=== PATIENT | male | born 1945 | race Caucasian/White ===

== ENCOUNTER 2017-11-16 12:43 | Emergency (ER) | payer MEDICARE ==
[~2017-11-16] VITALS: Ht 182.9 cm; Wt 92.1 kg
[~2017-11-16 12:43] MED LIST: DIOVAN PO; HUMALOG SQ; LANTUS SQ; LORTAB 10-5001 EACH PO
== END 2017-11-16 13:05 | disposition home or self-care (01) ==
LOC: FSED 12:43
DX: H11.31 Conjunctival hemorrhage, right eye (principal)
CPT/HCPCS: 85610; 99284

== ENCOUNTER 2018-08-05 02:51 | Emergency (ER) | payer MEDICARE ==
[~2018-08-05] VITALS: Ht 182.9 cm; Wt 88.5 kg
--- OUTSIDE RECORDS SUMMARY | 2018-08-05 02:56 | XMS REPORT ---
Author Author [facility] Address Unknown Phone Unavailable Care Team Providers Care Engineering And Development Director Name Role Phone MELINDA SANFORD Unavailable Unavailable AKI BRYANT Unavailable Unavailable MECHE BALDERAS Unavailable Unavailable BRIANA, SHANI OLIVEIRA Unavailable Unavailable Payers Payer Name Policy Type Policy Number Effective Date Expiration Date Problems This patient has no known problems. Allergies, Adverse Reactions, Alerts Allergy Name Allergy Type Status Severity Reaction(s) Onset Date Inactive Date Treating Clinician Comments sulfamethoxazole DA Active SV 2018-02-08 00:00:00 trimethoprim DA Active SV 2018-02-08 00:00:00 clarithromycin DA Active MO 2018-02-08 00:00:00 sulfamethoxazole DA Active SV 2015-05-19 00:00:00 trimethoprim DA Active SV 2015-05-19 00:00:00 clarithromycin DA Active MO 2015-05-19 00:00:00 Medications This patient has no known medications. Results Test Description Test Time Test Comments Text Results Atomic Results Result Comments POCT-GLUCOSE METER 2018-02-24 08:27:00 POC-GLUCOSE METER (BEAKER) (test wwjl=3705) 328 mg/dL 70-110 Will Repeat Test/TESTED AT [address] [address] BASIC METABOLIC [id number] 05:27:00* Test Item Value Reference Range Comments SODIUM (BEAKER) (test ujnc=938) 138 meq/L 136-145 POTASSIUM (BEAKER) (test eaxl=837) 4.0 meq/L 3.5-5.1 CHLORIDE (BEAKER) (test kmdo=399) 98 meq/L 98-107 CO2 (BEAKER) (test kcmb=767) 28 meq/L 22-29 BLOOD UREA NITROGEN (BEAKER) (test ycko=104) 49 mg/dL 7-21 CREATININE (BEAKER) (test bqun=372) 5.00 mg/dL 0.57-1.25 GLUCOSE RANDOM (BEAKER) (test wbux=511) 283 mg/dL 70-105 CALCIUM (BEAKER) (test mlor=312) 8.7 mg/dL 8.4-10.2 EGFR (BEAKER) (test itxb=4370) 12 mL/min/1.73 sq m ESTIMATED GFR IS NOT ACCURATE CREATININE CLEARANCE IN PREDICTING GLOMERULAR FILTRATION RATE. ESTIMATED GFR IS NOT APPLICABLE FOR DIALYSIS PATIENTS. POCT-GLUCOSE [id number] 21:01:00* Test Item Value Reference Range Comments POC-GLUCOSE METER (BEAKER) (test thza=0897) 278 mg/dL 70-110 TESTED AT [place] [id number] POCT-GLUCOSE [id number] 17:31:00* Test Item Value Reference Range Comments POC-GLUCOSE METER (BEAKER) (test cemk=2093) 127 mg/dL 70-110 TESTED AT [address] [address] POCT-GLUCOSE [id number] 13:32:00* Test Item Value Reference Range Comments POC-GLUCOSE METER (BEAKER) (test mzrl=9705) 303 mg/dL 70-110 TESTED AT [address] [address] POCT-GLUCOSE [id number] 09:11:00* Test Item Value Reference Range Comments POC-GLUCOSE METER (BEAKER) (test yoak=5977) 234 mg/dL 70-110 TESTED AT [address] [address] BASIC METABOLIC [id number] 05:59:00* Test Item Value Reference Range Comments SODIUM (BEAKER) (test dqqp=067) 140 meq/L 136-145 POTASSIUM (BEAKER) (test bndq=667) 3.9 meq/L 3.5-5.1 CHLORIDE (BEAKER) (test hzyf=971) 99 meq/L 98-107 CO2 (BEAKER) (test lzsk=260) 29 meq/L 22-29 BLOOD UREA NITROGEN (BEAKER) (test omod=277) 48 mg/dL 7-21 CREATININE (BEAKER) (test tiqv=177) 4.96 mg/dL 0.57-1.25 GLUCOSE RANDOM (BEAKER) (test fzka=526) 211 mg/dL 70-105 CALCIUM (BEAKER) (test nqsb=917) 8.7 mg/dL 8.4-10.2 EGFR (BEAKER) (test tloi=0369) 12 mL/min/1.73 sq m ESTIMATED GFR IS NOT ACCURATE CREATININE CLEARANCE IN PREDICTING GLOMERULAR FILTRATION RATE. ESTIMATED GFR IS NOT APPLICABLE FOR DIALYSIS PATIENTS. POCT-GLUCOSE [id number] 19:27:00* Test Item Value Reference Range Comments POC-GLUCOSE METER (BEAKER) (test ibgn=2975) 249 mg/dL 70-110 TESTED AT [place] [id number] POCT-GLUCOSE [id number] 18:01:00* Test Item Value Reference Range Comments POC-GLUCOSE METER (BEAKER) (test kchd=5830) 265 mg/dL 70-110 TESTED AT [address] [address] POCT-GLUCOSE [id number] 11:59:00* Test Item Value Reference Range Comments POC-GLUCOSE METER (BEAKER) (test fcwb=9997) 195 mg/dL 70-110 TESTED AT [address] [address] POCT-GLUCOSE [id number] 08:33:00* Test Item Value Reference Range Comments POC-GLUCOSE METER (BEAKER) (test miht=6952) 100 mg/dL 70-110 TESTED AT [address] [address] BASIC METABOLIC [id number] 06:29:00* Test Item Value Reference Range Comments SODIUM (BEAKER) (test celn=854) 138 meq/L 136-145 POTASSIUM (BEAKER) (test vllb=982) 3.8 meq/L 3.5-5.1 CHLORIDE (BEAKER) (test nzaf=177) 101 meq/L 98-107 CO2 (BEAKER) (test tomx=603) 28 meq/L 22-29 BLOOD UREA NITROGEN (BEAKER) (test gbew=314) 41 mg/dL 7-21 CREATININE (BEAKER) (test wxpa=054) 4.89 mg/dL 0.57-1.25 GLUCOSE RANDOM (BEAKER) (test mvdv=544) 107 mg/dL 70-105 CALCIUM (BEAKER) (test xcru=354) 8.4 mg/dL 8.4-10.2 EGFR (BEAKER) (test pxfw=1306) 12 mL/min/1.73 sq m ESTIMATED GFR IS NOT ACCURATE CREATININE CLEARANCE IN PREDICTING GLOMERULAR FILTRATION RATE. ESTIMATED GFR IS NOT APPLICABLE FOR DIALYSIS PATIENTS. IRON, TIBC, % SAT. (WITHOUT FERRITIN)2018-02-22 06:22:00* Test Item Value Reference Range Comments IRON (BEAKER) (test rduh=541) 34 ug/dL 40-160 TOTAL IRON BINDING CAPACITY (BEAKER) (test lzzf=651) 173 ug/dL 250-450 IRON % SATURATION (2) (BEAKER) (test gixr=8096) 20 % 20-55 CBC (HEMOGRAM ONLY)2018-02-22 05:40:00* Test Item Value Reference Range Comments WHITE BLOOD CELL COUNT (BEAKER) (test qifi=652) 6.9 K/ L 3.5-10.5 RED BLOOD CELL COUNT (BEAKER) (test dhhs=826) 2.76 M/ L 4.63-6.08 HEMOGLOBIN (BEAKER) (test rqfm=747) 8.0 GM/DL 13.7-17.5 HEMATOCRIT (BEAKER) (test opso=348) 25.6 % 40.1-51.0 MEAN CORPUSCULAR VOLUME (BEAKER) (test qkic=971) 92.8 fL 79.0-92.2 MEAN CORPUSCULAR HEMOGLOBIN (BEAKER) (test novh=646) 29.0 pg 25.7-32.2 MEAN CORPUSCULAR HEMOGLOBIN CONC (BEAKER) (test tdwp=767) 31.3 GM/DL 32.3-36.5 RED CELL DISTRIBUTION WIDTH (BEAKER) (test qcfl=340) 13.7 % 11.6-14.4 PLATELET COUNT (BEAKER) (test brod=259) 542 K/CU MM 150-450 MEAN PLATELET VOLUME (BEAKER) (test dttn=204) 10.4 fL 9.4-12.4 NUCLEATED RED BLOOD CELLS (BEAKER) (test nsuy=230) 0 /100 WBC 0-0 POCT-GLUCOSE [id number] 21:21:00* Test Item Value Reference Range Comments POC-GLUCOSE METER (BEAKER) (test misc=8796) 183 mg/dL 70-110 TESTED AT [facility] [address] [facility] [address] POCT-GLUCOSE [id number] 17:21:00* Test Item Value Reference Range Comments POC-GLUCOSE METER (BEAKER) (test eysa=3973) 170 mg/dL 70-110 TESTED AT [place] [id number] [facility] [address] POCT-GLUCOSE [id number] 12:05:00* Test Item Value Reference Range Comments POC-GLUCOSE METER (BEAKER) (test ivsg=5786) 122 mg/dL 70-110 TESTED AT [address] [address] POCT-GLUCOSE [id number] 07:24:00* Test Item Value Reference Range Comments POC-GLUCOSE METER (BEAKER) (test jddt=7175) 83 mg/dL 70-110 TESTED AT [address] [address] URINALYSIS W/ REFLEX URINE [id number] 03:09:00* Test Item Value Reference Range Comments COLOR (BEAKER) (test qewq=085) Light Yellow CLARITY (BEAKER) (test btbc=353) Clear SPECIFIC GRAVITY UA (BEAKER) (test mpob=594) 1.007 1.001-1.035 PH UA (BEAKER) (test qstb=255) 5.5 5.0-8.0 PROTEIN UA (BEAKER) (test mvhg=861) 20 mg/dL Negative GLUCOSE UA (BEAKER) (test suhp=817) Negative Negative KETONES UA (BEAKER) (test kynx=999) Negative Negative BILIRUBIN UA (BEAKER) (test sxir=507) Negative Negative BLOOD UA (BEAKER) (test luej=004) Trace Negative NITRITE UA (BEAKER) (test wpnm=617) Negative Negative LEUKOCYTE ESTERASE UA (BEAKER) (test fcea=985) Negative Negative UROBILINOGEN UA (BEAKER) (test zytc=263) 0.2 mg/dL 0.2-1.0 RBC UA (BEAKER) (test qtmo=892) 5 /HPF WBC UA (BEAKER) (test biuh=807) < /HPF MUCUS (BEAKER) (test wqjs=4472) Rare HYALINE CASTS (BEAKER) (test eatx=036) 1 /LPF SOURCE(BEAKER) (test mlgm=0236) TROPONIN [id number] 02:18:00* Test Item Value Reference Range Comments TROPONIN I (BEAKER) (test roub=455) 0.27 ng/mL 0.00-0.03 Troponin I (TnI) levels must be interpreted in the context of the presenting sym ptoms and the clinical findings. Elevated TnI levels indicate myocardial damage, but are not specific for ischemic heart disease. Elevated TnI levels are seen in patients with other cardiac conditions (including myocarditis and congestive h eart failure), and slight TnI elevations occur in patients with other conditions , including sepsis, renal failure, acidosis, acute neurological disease, and per sistent tachyarrhythmia.BASIC METABOLIC [id number] 02:09:00* Test Item Value Reference Range Comments SODIUM (BEAKER) (test dpkw=195) 142 meq/L 136-145 POTASSIUM (BEAKER) (test fggm=843) 3.5 meq/L 3.5-5.1 CHLORIDE (BEAKER) (test ikej=465) 104 meq/L 98-107 CO2 (BEAKER) (test kbot=360) 24 meq/L 22-29 BLOOD UREA NITROGEN (BEAKER) (test gjif=262) 41 mg/dL 7-21 CREATININE (BEAKER) (test sppz=921) 4.95 mg/dL 0.57-1.25 GLUCOSE RANDOM (BEAKER) (test lwdf=225) 120 mg/dL 70-105 CALCIUM (BEAKER) (test himh=836) 8.6 mg/dL 8.4-10.2 EGFR (BEAKER) (test kngq=5155) 12 mL/min/1.73 sq m ESTIMATED GFR IS NOT ACCURATE CREATININE CLEARANCE IN PREDICTING GLOMERULAR FILTRATION RATE. ESTIMATED GFR IS NOT APPLICABLE FOR DIALYSIS PATIENTS. [id number] 02:06:00* Test Item Value Reference Range Comments MAGNESIUM (BEAKER) (test ersa=253) 1.7 mg/dL 1.6-2.6 PROTHROMBIN [id number] 02:05:00* Test Item Value Reference Range Comments PROTIME (BEAKER) (test jzxv=023) 15.8 seconds 11.7-14.7 INR (BEAKER) (test tccs=890) 1.3 <=5.9 RECOMMENDED COUMADIN/WARFARIN INR THERAPY RANGESSTANDARD DOSE: 2.0 - 3.0 Inclu socrates: PROPHYLAXIS for venous thrombosis, systemic embolization; TREATMENT for patricio ous thrombosis and/or pulmonary embolus.HIGH RISK: Target INR is 2.5-3.5 for pat ients with mechanical heart valves.CBC W/PLT COUNT & AUTO [id number] 01:53:00* Test Item Value Reference Range Comments WHITE BLOOD CELL COUNT (BEAKER) (test xzgc=147) 7.4 K/ L 3.5-10.5 RED BLOOD CELL COUNT (BEAKER) (test yzwf=940) 2.67 M/ L 4.63-6.08 HEMOGLOBIN (BEAKER) (test lipv=539) 7.8 GM/DL 13.7-17.5 HEMATOCRIT (BEAKER) (test zbqv=731) 24.6 % 40.1-51.0 MEAN CORPUSCULAR VOLUME (BEAKER) (test zskf=096) 92.1 fL 79.0-92.2 MEAN CORPUSCULAR HEMOGLOBIN (BEAKER) (test lkli=170) 29.2 pg 25.7-32.2 MEAN CORPUSCULAR HEMOGLOBIN CONC (BEAKER) (test ozlm=938) 31.7 GM/DL 32.3-36.5 RED CELL DISTRIBUTION WIDTH (BEAKER) (test kvnt=999) 13.7 % 11.6-14.4 PLATELET COUNT (BEAKER) (test jajq=376) 457 K/CU MM 150-450 MEAN PLATELET VOLUME (BEAKER) (test opss=108) 10.2 fL 9.4-12.4 NUCLEATED RED BLOOD CELLS (BEAKER) (test odnn=676) 0 /100 WBC 0-0 NEUTROPHILS RELATIVE PERCENT (BEAKER) (test zoul=519) 64 % LYMPHOCYTES RELATIVE PERCENT (BEAKER) (test qgwt=232) 19 % MONOCYTES RELATIVE PERCENT (BEAKER) (test zuud=256) 10 % EOSINOPHILS RELATIVE PERCENT (BEAKER) (test vzoo=295) 6 % BASOPHILS RELATIVE PERCENT (BEAKER) (test mknj=902) 1 % NEUTROPHILS ABSOLUTE COUNT (BEAKER) (test fboy=025) 4.75 K/ L 1.78-5.38 LYMPHOCYTES ABSOLUTE COUNT (BEAKER) (test xvoj=711) 1.41 K/ L 1.32-3.57 MONOCYTES ABSOLUTE COUNT (BEAKER) (test aoui=064) 0.72 K/ L 0.30-0.82 EOSINOPHILS ABSOLUTE COUNT (BEAKER) (test xmdo=931) 0.46 K/ L 0.04-0.54 BASOPHILS ABSOLUTE COUNT (BEAKER) (test dgxz=632) 0.06 K/ L 0.01-0.08 IMMATURE GRANULOCYTES-RELATIVE PERCENT (BEAKER) (test khai=6540) 0 % 0-1 CT, [id number] 23:31:00Reason for exam:->abdominal painWhat is the patient's sedation requirement?->No SedationFINAL REPORT EXAM: CT of the chest, without contrast. CT of the abdomen and pelvis, without contrast. CLINICAL HISTORY: Severe abdominal pain and elevated lipase. Pulmonary edema. Shortness of breath. TECHNIQUE: CT images of the chest abdomen and pelvis were obtained without intravenous contrast. The exam was performed according to our departmental dose optimization program which includes automated exposure control, adjustment of the mA and/or kV according to patient's size and/or use of iterative reconstructive technique. COMPARISON: None FINDINGS: CHEST: LOWER NECK: Within normal limits.AIRWAYS, PLEURA AND LUNGS: Patent central tracheobronchial tree. Pulmonary interstitial edema. Small bilateral pleural effusions with associated compressive atelectasis. No pn eumothorax.VESSELS: Atherosclerotic calcifications of the aorta and branches. No thoracic aortic aneurysm. Mitral annular calcifications.HEART: Mild cardiomegal y. No pericardial effusion.JUAN AND MEDIASTINUM: Calcified mediastinal and right hilar lymph nodes, likely due to prior granulomatous disease.SOFT TISSUES: Mild bilateral gynecomastia.BONES: Generalized osteopenia. No suspicious osseous les ions. ABDOMEN AND PELVIS: LIVER: Calcified granulomata.BILE DUCTS: Within stephen l limits.GALL BLADDER: Cholelithiasis.PANCREAS: Parenchymal atrophy. Question pa ncreatic divisum. No peripancreatic fat stranding or fluid collection.SPLEEN: Ca lcified granulomata.ADRENALS: Within normal limits.KIDNEYS/URETERS: Within stephen l limits. URINARY BLADDER: Distended and thin-walled. Tiny focus of air in the u rinary bladder may be due to infection or recent instrumentation.REPRODUCTIVE OR KENYA: Within normal limits. BOWEL/MESENTERY: No bowel obstruction or abnormal wa ll thickening. Normal appendix.PERITONEUM/RETROPERITONEUM: No free air, free flu id or fluid collection. VESSELS: Calcific atherosclerosis. No abdominal aortic a neurysm. LYMPH NODES: No abdominal or pelvic lymphadenopathy.SOFT TISSUES: Small fat-containing bilateral inguinal hernias. Small fat-containing umbilical herni a. Mild anasarca. BONES: Generalized osteopenia. No suspicious osseous lesions. IMPRESSION: Chest CT:Pulmonary interstitial edema small bilateral pleural effusi ons. Mild cardiomegaly.Evidence of prior granulomatous disease. CT abdomen and p trinity:No CT evidence of acute pancreatitis. Question pancreatic divisum (anatomi c variant). MRI may be helpful for further evaluation if clinically warranted.Ti ny focus of air in the urinary bladder may be due to infection or recent instrum entation. Clinical correlation is recommended.Cholelithiasis without CT evidence for acute cholecystitis. Signed: Anu Mendoza Verified Date/Time: 23:31:16 Reading Location: [address] Body Reading Room Electro nically signed by: ANU MENDOZA MD on 02/20/2018 11:[address], CHEST, WITHOUT [id number] 23:31:00Reason for exam:->SOBWhat is the patient's sedation requirement?->No SedationFINAL REPORT EXAM: CT of the chest, without contrast. CT of the abdomen and pelvis, without contrast. CLINICAL HISTORY: Severe abdominal pain and elevated lipase. Pulmonary edema. Shortness of breath. TECHNIQUE: CT images of the chest abdomen and pelvis were obtained without intravenous contrast. The exam was performed according to our departmental dose optimization program which includes automated exposure control, adjustment of the mA and/or kV according to patient's size and/or use of iterative reconstructive technique. COMPARISON: None FINDINGS: CHEST: LOWER NECK: Within normal limits.AIRWAYS, PLEURA AND LUNGS: Patent central tracheobronchial tree. Pulmonary interstitial edema. Small bilateral pleural effusions with associated compressive atelectasis. No pneumothorax.VESSELS: Atherosclerotic calcifications of the aorta and branches. No thoracic aortic aneurysm. Mitral annular calcifications.HEART: Mild cardiomegaly. No pericardial effusion.JUAN AND MEDIASTINUM: Calcified mediastinal and right hilar lymph nodes, likely due to prior granulomatous disease.SOFT TISSUES: Mild bilateral gynecomastia.BONES: Generalized osteopenia. No suspicious osseous lesions. ABDOMEN AND PELVIS: LIVER: Calcified granulomata.BILE DUCTS: Within normal limits.GALL BLADDER: Cholelithiasis.PANCREAS: Parenchymal atrophy. Question pa ncreatic divisum. No peripancreatic fat stranding or fluid collection.SPLEEN: Ca lcified granulomata.ADRENALS: Within normal limits.KIDNEYS/URETERS: Within stephen l limits. URINARY BLADDER: Distended and thin-walled. Tiny focus of air in the u rinary bladder may be due to infection or recent instrumentation.REPRODUCTIVE OR KNEYA: Within normal limits. BOWEL/MESENTERY: No bowel obstruction or abnormal wa ll thickening. Normal appendix.PERITONEUM/RETROPERITONEUM: No free air, free flu id or fluid collection. VESSELS: Calcific atherosclerosis. No abdominal aortic a neurysm. LYMPH NODES: No abdominal or pelvic lymphadenopathy.SOFT TISSUES: Small fat-containing bilateral inguinal hernias. Small fat-containing umbilical herni a. Mild anasarca. BONES: Generalized osteopenia. No suspicious osseous lesions. IMPRESSION: Chest CT:Pulmonary interstitial edema small bilateral pleural effusi ons. Mild cardiomegaly.Evidence of prior granulomatous disease. CT abdomen and p trinity:No CT evidence of acute pancreatitis. Question pancreatic divisum (anatomi c variant). MRI may be helpful for further evaluation if clinically warranted.Ti ny focus of air in the urinary bladder may be due to infection or recent instrum entation. Clinical correlation is recommended.Cholelithiasis without CT evidence for acute cholecystitis. Signed: Anu Mendozaort Verified Date/Time: 23:31:16 Reading Location: [address] Body Reading Room Electro nically signed by: ANU MENDOZA MD on 02/20/2018 11:31 PM POCT-GLUCOSE [id number] 23:27:00* Test Item Value Reference Range Comments POC-GLUCOSE METER ([place] HoldingAKER) (test bckf=9913) 74 mg/dL 70-110 TESTED AT [facility] [address] [place] [id number] B-TYPE NATRIURETIC FACTOR (BNP)2018-02-20 23:14:00* Test Item Value Reference Range Comments B-TYPE NATRIURETIC PEPTIDE (BEAKER) (test ibdg=232) 3263 pg/mL 0-100 TROPONIN [id number] 22:36:00* Test Item Value Reference Range Comments TROPONIN I (BEAKER) (test uksg=848) 0.28 ng/mL 0.00-0.03 Troponin I (TnI) levels must be interpreted in the context of the presenting sym ptoms and the clinical findings. Elevated TnI levels indicate myocardial damage, but are not specific for ischemic heart disease. Elevated TnI levels are seen in patients with other cardiac conditions (including myocarditis and congestive h eart failure), and slight TnI elevations occur in patients with other conditions , including sepsis, renal failure, acidosis, acute neurological disease, and per sistent tachyarrhythmia.CREATINE KINASE (CK), TOTAL AND [id number] 22:33:00* Test Item Value Reference Range Comments CREATINE KINASE TOTAL (BEAKER) (test gnvc=439) 230 U/L 29-200 CREATINE KINASE-MB (BEAKER) (test sohn=904) 2.0 ng/mL 0.0-6.6 CREATINE KINASE-MB INDEX (BEAKER) (test jugj=397) 0.9 % CK-MB Reference Range:<6.7 Normal6.7-10.0 Borderline>10.0 Abnormal POCT-GLUCOSE [id number] 22:21:00* Test Item Value Reference Range Comments POC-GLUCOSE METER (BEAKER) (test lsfg=9446) 47 mg/dL 70-110 TESTED AT [facility] [address] [facility] [address] U/S, ABDOMINAL, [id number] 21:26:00Abdomen limited area? Add comment if clarification is needed.->Right upper quadrantReason for exam:->ABDOMINAL PAIN FINAL REPORT Abdominal ultrasound dated 02/20/2018 Commen t: Real-time transabdominal ultrasound of the right upper quadrant abdomen was performed. Liver is normal in size and measures 15.1 cm in length. The echogenic ity of the liver is heterogeneous. No focal lesion is noted in the liver. Gal lbladder is distended. Multiple gallstones are present. No biliary dilatation is seen. Common bile duct measures 4 mm in diameter. Main portal vein measures 9 mm in diameter. Pancreas is suboptimally visualized. Right kidney measures 10.2 x 4.4 x 5.4 cm. Echogenicity of the right kidney is normal. No ascites is pre sent in the abdomen. There is small right pleural effusion. Abdominal aorta is n ormal in caliber. IVC and Hepatic veins are patent. Impression: 1. Cholelithias is without biliary dilatation.2. Heterogeneous appearing liver.3. Small right pl eural effusion. Signed: Derek Mukherjeeeport Verified Date/Time: 02/20/2018 21: 26:54 Reading Location: [address] Consult Reading Room Electronically si gned by: DEREK MUKHERJEE M.D. on 02/20/2018 09:26 PM RAD, CHEST, 2 [id number] 20:12:00Reason for exam:->ABDOMINAL PAINReason for exam:->cough, shortness of breathFINAL REPORT PA and lateral chest dated 02/20/2018 Clinical Information: ABDOMINAL PAINcough, shortness of breath Comment: Heart is in the upper limits of normal in size. Pulmonary vasculature is indistinct. Interstitial disease is seen bilaterally suggestive pulmonary edema. There is trace bilateral pleural effusion. Impression: Interval development of pulmonary edema and trace bilateral pleural effusion. Signed: Derek Mukherjeeeport Verified Date/Time: 02/20/2018 20:12:01 Reading Location: [facility] [id number] Consult Reading Room C METABOLIC [id number] 19:50:00* Test Item Value Reference Range Comments SODIUM (BEAKER) (test hsrh=217) 142 meq/L 136-145 POTASSIUM (BEAKER) (test frzn=270) 3.4 meq/L 3.5-5.1 CHLORIDE (BEAKER) (test lzpk=947) 105 meq/L 98-107 CO2 (BEAKER) (test dhfv=557) 24 meq/L 22-29 BLOOD UREA NITROGEN (BEAKER) (test nntg=187) 42 mg/dL 7-21 CREATININE (BEAKER) (test kxyp=724) 5.00 mg/dL 0.57-1.25 GLUCOSE RANDOM (BEAKER) (test xmnp=981) 47 mg/dL 70-105 CALCIUM (BEAKER) (test nncr=095) 8.8 mg/dL 8.4-10.2 EGFR (BEAKER) (test uagx=2288) 12 mL/min/1.73 sq m ESTIMATED GFR IS NOT ACCURATE CREATININE CLEARANCE IN PREDICTING GLOMERULAR FILTRATION RATE. ESTIMATED GFR IS NOT APPLICABLE FOR DIALYSIS PATIENTS. [id number] 19:49:00* Test Item Value Reference Range Comments LIPASE (BEAKER) (test rcwc=997) 14 U/L 8-78 HEPATIC FUNCTION [id number] 19:49:00* Test Item Value Reference Range Comments TOTAL PROTEIN (BEAKER) (test heco=906) 6.8 gm/dL 6.0-8.3 ALBUMIN (BEAKER) (test mfev=9415) 3.3 g/dL 3.5-5.0 BILIRUBIN TOTAL (BEAKER) (test mjlw=584) 0.3 mg/dL 0.2-1.2 BILIRUBIN DIRECT (BEAKER) (test xgkb=203) 0.2 mg/dL 0.1-0.5 ALKALINE PHOSPHATASE (BEAKER) (test zxdt=443) 90 U/L 40-150 AST (SGOT) (BEAKER) (test qakw=072) 21 U/L 5-34 ALT (SGPT) (BEAKER) (test saej=120) 18 U/L 6-55 PROTHROMBIN [id number] 19:36:00* Test Item Value Reference Range Comments PROTIME (BEAKER) (test lxgc=613) 15.2 seconds 11.7-14.7 INR (BEAKER) (test wtvx=762) 1.2 <=5.9 RECOMMENDED COUMADIN/WARFARIN INR THERAPY RANGESSTANDARD DOSE: 2.0 - 3.0 Inclu socrates: PROPHYLAXIS for venous thrombosis, systemic embolization; TREATMENT for patricio ous thrombosis and/or pulmonary embolus.HIGH RISK: Target INR is 2.5-3.5 for pat ients with mechanical heart valves.[id number] 19:36:00* Test Item Value Reference Range Comments PARTIAL THROMBOPLASTIN TIME (BEAKER) (test kjvn=871) 32.0 seconds 22.5-36.0 CBC W/PLT COUNT & AUTO [id number] 19:29:00* Test Item Value Reference Range Comments WHITE BLOOD CELL COUNT (BEAKER) (test klyo=573) 8.6 K/ L 3.5-10.5 RED BLOOD CELL COUNT (BEAKER) (test qeie=563) 2.83 M/ L 4.63-6.08 HEMOGLOBIN (BEAKER) (test evpz=840) 8.2 GM/DL 13.7-17.5 HEMATOCRIT (BEAKER) (test xdbz=109) 26.4 % 40.1-51.0 MEAN CORPUSCULAR VOLUME (BEAKER) (test qxak=013) 93.3 fL 79.0-92.2 MEAN CORPUSCULAR HEMOGLOBIN (BEAKER) (test ehcj=972) 29.0 pg 25.7-32.2 MEAN CORPUSCULAR HEMOGLOBIN CONC (BEAKER) (test lxvs=606) 31.1 GM/DL 32.3-36.5 RED CELL DISTRIBUTION WIDTH (BEAKER) (test xrlk=017) 13.7 % 11.6-14.4 PLATELET COUNT (BEAKER) (test tchn=147) 497 K/CU MM 150-450 MEAN PLATELET VOLUME (BEAKER) (test trya=367) 10.2 fL 9.4-12.4 NUCLEATED RED BLOOD CELLS (BEAKER) (test npvj=870) 0 /100 WBC 0-0 NEUTROPHILS RELATIVE PERCENT (BEAKER) (test rgrg=519) 66 % LYMPHOCYTES RELATIVE PERCENT (BEAKER) (test ycyy=373) 17 % MONOCYTES RELATIVE PERCENT (BEAKER) (test ryjg=618) 11 % EOSINOPHILS RELATIVE PERCENT (BEAKER) (test ikac=726) 5 % BASOPHILS RELATIVE PERCENT (BEAKER) (test rrls=875) 1 % NEUTROPHILS ABSOLUTE COUNT (BEAKER) (test flim=317) 5.69 K/ L 1.78-5.38 LYMPHOCYTES ABSOLUTE COUNT (BEAKER) (test ociv=641) 1.45 K/ L 1.32-3.57 MONOCYTES ABSOLUTE COUNT (BEAKER) (test xdbr=677) 0.91 K/ L 0.30-0.82 EOSINOPHILS ABSOLUTE COUNT (BEAKER) (test fpau=286) 0.43 K/ L 0.04-0.54 BASOPHILS ABSOLUTE COUNT (BEAKER) (test vaob=898) 0.07 K/ L 0.01-0.08 IMMATURE GRANULOCYTES-RELATIVE PERCENT (BEAKER) (test oiqo=9184) 1 % 0-1 URINE [id number] 10:20:00* Test Item Value Reference Range Comments CULTURE (BEAKER) (test levh=9205) Ampicillin (test code=26) Linezolid (test code=40) Nitrofurantoin (test code=23) Tetracycline (test code=2) Vancomycin (test code=13) CULTURE (BEAKER) (test bshu=1471) >100,000 col/mL Enterococcus species URINALYSIS W/ [id number] 07:53:00* Test Item Value Reference Range Comments COLOR (BEAKER) (test vhay=649) Red CLARITY (BEAKER) (test rjic=095) Cloudy SPECIFIC GRAVITY UA (BEAKER) (test hxvi=187) 1.013 1.001-1.035 PH UA (BEAKER) (test ylrq=312) 5.5 5.0-8.0 PROTEIN UA (BEAKER) (test cxjr=222) 100 mg/dL Negative GLUCOSE UA (BEAKER) (test suww=388) 50 mg/dL Negative KETONES UA (BEAKER) (test nysw=810) Negative Negative BILIRUBIN UA (BEAKER) (test qwrx=850) Negative Negative BLOOD UA (BEAKER) (test chfz=658) Large Negative NITRITE UA (BEAKER) (test ujtb=595) Negative Negative LEUKOCYTE ESTERASE UA (BEAKER) (test rbyh=859) Large Negative UROBILINOGEN UA (BEAKER) (test bzbp=955) 0.2 mg/dL 0.2-1.0 RBC UA (BEAKER) (test csno=792) > /HPF WBC UA (BEAKER) (test dmaj=701) 838 /HPF SOURCE(BEAKER) (test pawx=6590) Urine, Voided BASIC METABOLIC [id number] 03:37:00* Test Item Value Reference Range Comments SODIUM (BEAKER) (test fwrg=830) 141 meq/L 136-145 POTASSIUM (BEAKER) (test qmsw=447) 4.0 meq/L 3.5-5.1 CHLORIDE (BEAKER) (test nmny=294) 109 meq/L 98-107 CO2 (BEAKER) (test ndjx=335) 24 meq/L 22-29 BLOOD UREA NITROGEN (BEAKER) (test hkjt=674) 40 mg/dL 7-21 CREATININE (BEAKER) (test mbie=584) 2.96 mg/dL 0.57-1.25 GLUCOSE RANDOM (BEAKER) (test pyxr=973) 121 mg/dL 70-105 CALCIUM (BEAKER) (test sian=107) 9.1 mg/dL 8.4-10.2 EGFR (BEAKER) (test zcgu=9447) 21 mL/min/1.73 sq m ESTIMATED GFR IS NOT ACCURATE CREATININE CLEARANCE IN PREDICTING GLOMERULAR FILTRATION RATE. ESTIMATED GFR IS NOT APPLICABLE FOR DIALYSIS PATIENTS. CBC W/PLT COUNT & AUTO [id number] 02:44:00* Test Item Value Reference Range Comments WHITE BLOOD CELL COUNT (BEAKER) (test aqbh=794) 8.4 K/ L 3.5-10.5 RED BLOOD CELL COUNT (BEAKER) (test yvsr=271) 3.40 M/ L 4.63-6.08 HEMOGLOBIN (BEAKER) (test uxft=164) 9.7 GM/DL 13.7-17.5 HEMATOCRIT (BEAKER) (test hfjz=360) 30.7 % 40.1-51.0 MEAN CORPUSCULAR VOLUME (BEAKER) (test tqzz=964) 90.3 fL 79.0-92.2 MEAN CORPUSCULAR HEMOGLOBIN (BEAKER) (test kexf=272) 28.5 pg 25.7-32.2 MEAN CORPUSCULAR HEMOGLOBIN CONC (BEAKER) (test lrtz=462) 31.6 GM/DL 32.3-36.5 RED CELL DISTRIBUTION WIDTH (BEAKER) (test jfio=086) 13.9 % 11.6-14.4 PLATELET COUNT (BEAKER) (test udpx=072) 372 K/CU MM 150-450 MEAN PLATELET VOLUME (BEAKER) (test zlmu=303) 10.0 fL 9.4-12.4 NUCLEATED RED BLOOD CELLS (BEAKER) (test kngb=270) 0 /100 WBC 0-0 NEUTROPHILS RELATIVE PERCENT (BEAKER) (test thzf=607) 61 % LYMPHOCYTES RELATIVE PERCENT (BEAKER) (test chnv=115) 25 % MONOCYTES RELATIVE PERCENT (BEAKER) (test mhnw=864) 8 % EOSINOPHILS RELATIVE PERCENT (BEAKER) (test fjxq=103) 6 % BASOPHILS RELATIVE PERCENT (BEAKER) (test geqy=732) 1 % NEUTROPHILS ABSOLUTE COUNT (BEAKER) (test dbgc=756) 5.10 K/ L 1.78-5.38 LYMPHOCYTES ABSOLUTE COUNT (BEAKER) (test lgax=846) 2.08 K/ L 1.32-3.57 MONOCYTES ABSOLUTE COUNT (BEAKER) (test axfs=807) 0.64 K/ L 0.30-0.82 EOSINOPHILS ABSOLUTE COUNT (BEAKER) (test ssqt=305) 0.46 K/ L 0.04-0.54 BASOPHILS ABSOLUTE COUNT (BEAKER) (test xccr=967) 0.08 K/ L 0.01-0.08 IMMATURE GRANULOCYTES-RELATIVE PERCENT (BEAKER) (test qtqm=6515) 0 % 0-1 POCT-GLUCOSE [id number] 07:57:00* Test Item Value Reference Range Comments POC-GLUCOSE METER (BEAKER) (test bnye=1498) 112 mg/dL 70-110 TESTED AT [place] [id number] [facility] [address] POCT-GLUCOSE [id number] 07:14:00* Test Item Value Reference Range Comments POC-GLUCOSE METER (BEAKER) (test bmfd=9181) 69 mg/dL 70-110 TESTED AT [address] [address] BASIC METABOLIC [id number] 05:59:00* Test Item Value Reference Range Comments SODIUM (BEAKER) (test thtw=237) 140 meq/L 136-145 POTASSIUM (BEAKER) (test sleq=500) 4.0 meq/L 3.5-5.1 CHLORIDE (BEAKER) (test dskt=502) 108 meq/L 98-107 CO2 (BEAKER) (test lmwi=508) 25 meq/L 22-29 BLOOD UREA NITROGEN (BEAKER) (test judc=345) 46 mg/dL 7-21 CREATININE (BEAKER) (test mygs=834) 3.23 mg/dL 0.57-1.25 GLUCOSE RANDOM (BEAKER) (test vvlp=972) 104 mg/dL 70-105 CALCIUM (BEAKER) (test zklq=748) 8.5 mg/dL 8.4-10.2 EGFR (BEAKER) (test fwbo=4625) 19 mL/min/1.73 sq m ESTIMATED GFR IS NOT ACCURATE CREATININE CLEARANCE IN PREDICTING GLOMERULAR FILTRATION RATE. ESTIMATED GFR IS NOT APPLICABLE FOR DIALYSIS PATIENTS. [id number] 05:55:00* Test Item Value Reference Range Comments PHOSPHORUS (BEAKER) (test vsfi=078) 3.2 mg/dL 2.3-4.7 [id number] 05:55:00* Test Item Value Reference Range Comments MAGNESIUM (BEAKER) (test ofrp=496) 1.5 mg/dL 1.6-2.6 POCT-GLUCOSE [id number] 00:53:00* Test Item Value Reference Range Comments POC-GLUCOSE METER (BEAKER) (test pjrg=0718) 157 mg/dL 70-110 TESTED AT [address] [address] OSMOLALITY, [id number] 19:28:00* Test Item Value Reference Range Comments OSMOLALITY URINE (BEAKER) (test jmqz=088) 358 mOsm/kg 40-1400 POCT-GLUCOSE [id number] 18:15:00* Test Item Value Reference Range Comments POC-GLUCOSE METER (BEAKER) (test fyoc=2262) 50 mg/dL 70-110 TESTED AT [address] [address] POCT-GLUCOSE [id number] 17:26:00* Test Item Value Reference Range Comments POC-GLUCOSE METER (BEAKER) (test vsnc=0643) 42 mg/dL 70-110 TESTED AT [address] [address] POCT-GLUCOSE [id number] 11:56:00* Test Item Value Reference Range Comments POC-GLUCOSE METER (BEAKER) (test jvar=7088) 202 mg/dL 70-110 TESTED AT [address] [address] EOSINOPHIL SMEAR, [id number] 10:43:00* Test Item Value Reference Range Comments EOSINOPHIL SMEAR, URINE (BEAKER) (test bjuq=4067) Rare EOS=less than 5% WBCs seen are EOS No EOS seen POCT-GLUCOSE [id number] 07:35:00* Test Item Value Reference Range Comments POC-GLUCOSE METER (BEAKER) (test grwk=8670) 124 mg/dL 70-110 TESTED AT [address] [address] BASIC METABOLIC [id number] 07:35:00* Test Item Value Reference Range Comments SODIUM (BEAKER) (test thjw=904) 138 meq/L 136-145 POTASSIUM (BEAKER) (test zzcd=288) 4.8 meq/L 3.5-5.1 CHLORIDE (BEAKER) (test iyax=897) 110 meq/L 98-107 CO2 (BEAKER) (test eqxw=308) 20 meq/L 22-29 BLOOD UREA NITROGEN (BEAKER) (test tkbv=788) 57 mg/dL 7-21 CREATININE (BEAKER) (test vnaa=478) 4.06 mg/dL 0.57-1.25 GLUCOSE RANDOM (BEAKER) (test nsge=955) 120 mg/dL 70-105 CALCIUM (BEAKER) (test nrut=109) 8.7 mg/dL 8.4-10.2 EGFR (BEAKER) (test xsdf=5940) 15 mL/min/1.73 sq m ESTIMATED GFR IS NOT ACCURATE CREATININE CLEARANCE IN PREDICTING GLOMERULAR FILTRATION RATE. ESTIMATED GFR IS NOT APPLICABLE FOR DIALYSIS PATIENTS. CHLORIDE, RANDOM [id number] 07:19:00* Test Item Value Reference Range Comments CHLORIDE URINE (BEAKER) (test rlfi=054) 100 meq/L Reference Range: No NormalsPOTASSIUM, RANDOM [id number] 07:19:00* Test Item Value Reference Range Comments POTASSIUM URINE (BEAKER) (test upoz=895) 19.8 meq/L Reference Range: No NormalsSODIUM, RANDOM [id number] 07:19:00* Test Item Value Reference Range Comments SODIUM URINE (BEAKER) (test jrwh=598) 92 meq/L Reference Range: No NormalsU/S, RENAL, [id number] 06:38:00Reason for exam:->merlene on ckdFINAL REPORT Comparison examination: None Right kidney : 10.0 x 5.5 x 6.0 cmNo hydronephrosis. No renal stones. Normal renal parenchymal echogenicity. Renal parenchymal thickness: 13 mmNo renal masses. No renal cysts. Left kidney : 8.0 x 5.5 x 5.4 cmNo hydronephrosis. No renal stones. Normal renal parenchymal echogenicity. Renal parenchymal thickness: 12 mmNo renal masses. No renal cysts. Empty bladder containing a Melgar catheter. Impression: 1. Moderately small left kidney 2. No acute abnormality. Signed: Sunil Lemus MDReport Verified Date/Time: 03/13/2017 06:38:15 Reading Location: [facility] C013X Ortho Consult Reading Room - GLUCOSE [id number] 04:32:00* Test Item Value Reference Range Comments POC-GLUCOSE METER (BEAKER) (test ujcw=7782) 191 mg/dL 70-110 TESTED AT [facility] [address] [facility] [address] POCT-GLUCOSE [id number] 22:15:00* Test Item Value Reference Range Comments POC-GLUCOSE METER (BEAKER) (test ilqg=5537) 308 mg/dL 70-110 Notified [facility]/TESTED AT [place] [id number] [facility] [address] EOSINOPHIL SMEAR, [id number] 19:24:00* Test Item Value Reference Range Comments EOSINOPHIL SMEAR, URINE (BEAKER) (test jgqn=1958) Positive=greater than 5% WBCs are EOS No EOS seen URINALYSIS W/ [id number] 19:07:00* Test Item Value Reference Range Comments COLOR (BEAKER) (test qhew=389) Yellow CLARITY (BEAKER) (test yyoc=541) Hazy SPECIFIC GRAVITY UA (BEAKER) (test pojl=120) 1.004 1.001-1.035 PH UA (BEAKER) (test jugy=081) 5.5 5.0-8.0 PROTEIN UA (BEAKER) (test wdca=142) 70 mg/dL Negative GLUCOSE UA (BEAKER) (test kvas=099) Negative Negative KETONES UA (BEAKER) (test gyuc=427) Negative Negative BILIRUBIN UA (BEAKER) (test uduk=841) Negative Negative BLOOD UA (BEAKER) (test edkc=242) Large Negative NITRITE UA (BEAKER) (test cahr=773) Negative Negative LEUKOCYTE ESTERASE UA (BEAKER) (test mena=033) Large Negative UROBILINOGEN UA (BEAKER) (test cybt=902) 0.2 mg/dL 0.2-1.0 RBC UA (BEAKER) (test iikn=011) 105 /HPF WBC UA (BEAKER) (test tlhz=202) 23 /HPF BACTERIA (BEAKER) (test qrne=607) Moderate SQUAMOUS EPITHELIAL (BEAKER) (test inmz=393) < /HPF CRYSTALS, URINE (BEAKER) (test kuuh=1205) Occasional SOURCE(BEAKER) (test zjjl=3812) Urine, Melgar SODIUM, RANDOM [id number] 18:41:00* Test Item Value Reference Range Comments SODIUM URINE (BEAKER) (test pqgg=466) 42 meq/L Reference Range: No NormalsPOCT-GLUCOSE [id number] 17:13:00* Test Item Value Reference Range Comments POC-GLUCOSE METER (BEAKER) (test cycw=8964) 102 mg/dL 70-110 TESTED AT [facility] [address] [facility] [address] TISSUE [id number] 16:56:00Surgical Pathology Report Case: [id number] Authorizing Provider: Frank Balderas MD Collected: 03/11/2017 1505 Ordering Location: [facility] PERIOPERATIVE Received: 03/11/2017 1621 SERVICES Pathologist: John Ribera MD Specimen: Prostate, TURP, PROSTATE CHIPS PROSTATE, TRANSURETHRAL RESECTION OF PROSTATE: - NODULAR HYPERPLASIA Signing Pathologist Direct Phone Line: [phone] signed by John Ribera MD on 03/12/2017 at 4:56 [id number] localized hyperplasia of prostate with urinary obstructionProstate chipsReceived in formalin labeled "prostate, TURP", description "prostate chips" are multiple irregular pink-kenyon to collier-white, rubbery, cauterized strips of soft tissue weighing 5.0 gm and measuring 4.0 x 3.3 x 0.6 cm in aggregate. The specimen is entirely submitted in cassette A1-A6. DB/plPerformed. BASIC METABOLIC PANEL 2017-03-12 15:51:00* Test Item Value Reference Range Comments SODIUM (BEAKER) (test fmlk=058) 136 meq/L 136-145 POTASSIUM (BEAKER) (test gqoa=191) 4.6 meq/L 3.5-5.1 Specimen slightly hemolyzed CHLORIDE (BEAKER) (test wgol=544) 108 meq/L 98-107 CO2 (BEAKER) (test gjks=966) 19 meq/L 22-29 BLOOD UREA NITROGEN (BEAKER) (test xhot=025) 62 mg/dL 7-21 CREATININE (BEAKER) (test qnmp=976) 4.34 mg/dL 0.57-1.25 Specimen slightly hemolyzed GLUCOSE RANDOM (BEAKER) (test qbwp=851) 35 mg/dL 70-105 CALCIUM (BEAKER) (test itte=025) 8.8 mg/dL 8.4-10.2 EGFR (BEAKER) (test rowr=0385) 14 mL/min/1.73 sq m ESTIMATED GFR IS NOT ACCURATE CREATININE CLEARANCE IN PREDICTING GLOMERULAR FILTRATION RATE. ESTIMATED GFR IS NOT APPLICABLE FOR DIALYSIS PATIENTS. POCT-GLUCOSE [id number] 15:40:00* Test Item Value Reference Range Comments POC-GLUCOSE METER (BEAKER) (test xcft=7675) 93 mg/dL 70-110 TESTED AT [place] [id number] POCT-GLUCOSE [id number] 13:55:00* Test Item Value Reference Range Comments POC-GLUCOSE METER (BEAKER) (test tqek=8346) 33 mg/dL 70-110 TESTED AT [address] [address] POCT-GLUCOSE [id number] 12:05:00* Test Item Value Reference Range Comments POC-GLUCOSE METER (BEAKER) (test glzh=8653) 113 mg/dL 70-110 TESTED AT [address] [address] POCT-GLUCOSE [id number] 09:07:00* Test Item Value Reference Range Comments POC-GLUCOSE METER (BEAKER) (test tall=0950) 358 mg/dL 70-110 TESTED AT [address] [address] POCT-GLUCOSE [id number] 05:34:00* Test Item Value Reference Range Comments POC-GLUCOSE METER (BEAKER) (test gjyx=1156) > mg/dL 70-110 OUTSIDE MEASURING RANGETESTED AT [address] [address] BASIC METABOLIC [id number] 05:19:00* Test Item Value Reference Range Comments SODIUM (BEAKER) (test ahdh=883) 130 meq/L 136-145 POTASSIUM (BEAKER) (test hgvu=898) 5.5 meq/L 3.5-5.1 CHLORIDE (BEAKER) (test qqyy=468) 105 meq/L 98-107 CO2 (BEAKER) (test rqro=450) 16 meq/L 22-29 BLOOD UREA NITROGEN (BEAKER) (test yxux=658) 56 mg/dL 7-21 CREATININE (BEAKER) (test vehc=002) 4.48 mg/dL 0.57-1.25 GLUCOSE RANDOM (BEAKER) (test qbcf=714) 480 mg/dL 70-105 CALCIUM (BEAKER) (test bfsl=679) 8.4 mg/dL 8.4-10.2 EGFR (BEAKER) (test jaul=0268) 13 mL/min/1.73 sq m ESTIMATED GFR IS NOT ACCURATE CREATININE CLEARANCE IN PREDICTING GLOMERULAR FILTRATION RATE. ESTIMATED GFR IS NOT APPLICABLE FOR DIALYSIS PATIENTS. HEMOGLOBIN AND [id number] 04:54:00* Test Item Value Reference Range Comments HEMOGLOBIN (BEAKER) (test dmia=557) 8.8 GM/DL 13.7-17.5 HEMATOCRIT (BEAKER) (test hzmt=838) 28.2 % 40.1-51.0 POCT-GLUCOSE [id number] 21:35:00* Test Item Value Reference Range Comments POC-GLUCOSE METER (BEAKER) (test bpap=5419) 281 mg/dL 70-110 TESTED AT [address] [address] POCT-GLUCOSE [id number] 16:09:00* Test Item Value Reference Range Comments POC-GLUCOSE METER (BEAKER) (test ewln=8686) 132 mg/dL 70-110 TESTED AT [address] [address] POCT-GLUCOSE [id number] 12:18:00* Test Item Value Reference Range Comments POC-GLUCOSE METER (BEAKER) (test srwr=7449) 144 mg/dL 70-110 TESTED AT [address] [address] URINE [id number] 10:18:00* Test Item Value Reference Range Comments CULTURE (BEAKER) (test fzje=8100) COAGULASE NEGATIVE STAPHYLOCOCCUS >100,000 col/mL Coagulase negative Staphylococcus Clindamycin (test code=10) Erythromycin (test code=4) Levofloxacin (test code=22) Linezolid (test code=40) Nitrofurantoin (test code=23) Oxacillin (test code=14) Rifampin (test code=43) Tetracycline (test code=2) Trimethoprim + Sulfamethoxazole (test code=47) Vancomycin (test code=13) URINALYSIS W/ [id number] 01:15:00* Test Item Value Reference Range Comments COLOR (BEAKER) (test wrwf=705) Light Yellow CLARITY (BEAKER) (test vqvr=875) Hazy SPECIFIC GRAVITY UA (BEAKER) (test zhbf=106) 1.008 1.001-1.035 PH UA (BEAKER) (test wyas=377) 5.5 5.0-8.0 PROTEIN UA (BEAKER) (test vpac=616) 50 mg/dL Negative GLUCOSE UA (BEAKER) (test ovek=742) Negative Negative KETONES UA (BEAKER) (test pvwg=495) Negative Negative BILIRUBIN UA (BEAKER) (test xtla=314) Negative Negative BLOOD UA (BEAKER) (test czbz=653) Trace Negative NITRITE UA (BEAKER) (test vyqp=051) Negative Negative LEUKOCYTE ESTERASE UA (BEAKER) (test nfgb=380) Large Negative UROBILINOGEN UA (BEAKER) (test yalo=631) 0.2 mg/dL 0.2-1.0 RBC UA (BEAKER) (test mhoj=395) 5 /HPF WBC UA (BEAKER) (test rqfj=321) 127 /HPF Wbc clumps seen BACTERIA (BEAKER) (test jzsw=161) Many AMORPHOUS CRYSTALS (BEAKER) (test dfpj=0087) Few SOURCE(BEAKER) (test yoay=1067) Urine, Melgar CREATINE KINASE (CK), TOTAL AND [id number] 19:27:00* Test Item Value Reference Range Comments CREATINE KINASE TOTAL (BEAKER) (test bnir=500) 55 U/L 29-200 CREATINE KINASE-MB (BEAKER) (test uknk=516) 1.7 ng/mL 0.0-6.6 CREATINE KINASE-MB INDEX (BEAKER) (test zzla=158) 3.1 % CK-MB Reference Range:<6.7 Normal6.7-10.0 Borderline>10.0 Abnormal TROPONIN [id number] 19:27:00* Test Item Value Reference Range Comments TROPONIN I (BEAKER) (test gfnd=768) 0.02 ng/mL 0.00-0.03 Troponin I (TnI) levels must be interpreted in the context of the presenting sym ptoms and the clinical findings. Elevated TnI levels indicate myocardial damage, but are not specific for ischemic heart disease. Elevated TnI levels are seen in patients with other cardiac conditions (including myocarditis and congestive h eart failure), and slight TnI elevations occur in patients with other conditions , including sepsis, renal failure, acidosis, acute neurological disease, and per sistent tachyarrhythmia.COMPREHENSIVE METABOLIC [id number] 19:20:00* Test Item Value Reference Range Comments TOTAL PROTEIN (BEAKER) (test popx=067) 7.3 gm/dL 6.0-8.3 ALBUMIN (BEAKER) (test vdqh=8128) 3.9 g/dL 3.5-5.0 ALKALINE PHOSPHATASE (BEAKER) (test rwzs=746) 79 U/L 40-150 BILIRUBIN TOTAL (BEAKER) (test ehir=006) 0.4 mg/dL 0.2-1.2 SODIUM (BEAKER) (test pgtd=584) 140 meq/L 136-145 POTASSIUM (BEAKER) (test lvrv=666) 4.2 meq/L 3.5-5.1 CHLORIDE (BEAKER) (test jgkc=918) 108 meq/L 98-107 CO2 (BEAKER) (test nbqu=701) 22 meq/L 22-29 BLOOD UREA NITROGEN (BEAKER) (test mkws=762) 50 mg/dL 7-21 CREATININE (BEAKER) (test ccpr=468) 3.90 mg/dL 0.57-1.25 GLUCOSE RANDOM (BEAKER) (test dqdj=250) 98 mg/dL 70-105 CALCIUM (BEAKER) (test ctxh=407) 9.3 mg/dL 8.4-10.2 AST (SGOT) (BEAKER) (test hrad=691) 17 U/L 5-34 ALT (SGPT) (BEAKER) (test xbjm=905) 13 U/L 6-55 EGFR (BEAKER) (test xzpy=6089) mL/min/1.73 sq m INSUFFICIENT CLINICAL DATA TO CALCULATE ESTIMATED GFR. RAD, CHEST, 2 [id number] 19:15:00Reason for exam:->HYPOTENSIONReason for exam:->BRADYCARDIAFINAL REPORT Examination: Two view Chest X-ray. CLINICAL HISTORY: Hypotension and bradycardia COMPARISON:None. The cardiomediastinal and hilar contours are unremarkable. \\E\\ There is no focal consolidation, pneumothorax, large pleural effusion or evidence of overt pulmonary edema. There is no acute bony abnormality. Signed: Kenn Chen MDReport Verified Date/Time: 01/18/2017 19:15:57 Reading Location: [address] Reading Room W/PLT COUNT & AUTO [id number] 18:55:00* Test Item Value Reference Range Comments WHITE BLOOD CELL COUNT (BEAKER) (test xidw=078) 9.2 K/ L 3.5-10.5 RED BLOOD CELL COUNT (BEAKER) (test mdkc=127) 3.54 M/ L 4.63-6.08 HEMOGLOBIN (BEAKER) (test mspz=993) 10.1 GM/DL 13.7-17.5 HEMATOCRIT (BEAKER) (test akav=144) 32.2 % 40.1-51.0 MEAN CORPUSCULAR VOLUME (BEAKER) (test mgba=471) 91.0 fL 79.0-92.2 MEAN CORPUSCULAR HEMOGLOBIN (BEAKER) (test rtbq=980) 28.5 pg 25.7-32.2 MEAN CORPUSCULAR HEMOGLOBIN CONC (BEAKER) (test uxry=534) 31.4 GM/DL 32.3-36.5 RED CELL DISTRIBUTION WIDTH (BEAKER) (test mcij=621) 13.6 % 11.6-14.4 PLATELET COUNT (BEAKER) (test xriz=510) 346 K/CU MM 150-450 MEAN PLATELET VOLUME (BEAKER) (test xhip=362) 10.1 fL 9.4-12.4 NUCLEATED RED BLOOD CELLS (BEAKER) (test vvga=670) 0 /100 WBC 0-0 NEUTROPHILS RELATIVE PERCENT (BEAKER) (test psxt=595) 59 % LYMPHOCYTES RELATIVE PERCENT (BEAKER) (test tnla=716) 27 % MONOCYTES RELATIVE PERCENT (BEAKER) (test jgwt=681) 9 % EOSINOPHILS RELATIVE PERCENT (BEAKER) (test horq=955) 4 % BASOPHILS RELATIVE PERCENT (BEAKER) (test nxok=184) 1 % NEUTROPHILS ABSOLUTE COUNT (BEAKER) (test sdiy=878) 5.45 K/ L 1.78-5.38 LYMPHOCYTES ABSOLUTE COUNT (BEAKER) (test ygmh=131) 2.48 K/ L 1.32-3.57 MONOCYTES ABSOLUTE COUNT (BEAKER) (test ywng=617) 0.85 K/ L 0.30-0.82 EOSINOPHILS ABSOLUTE COUNT (BEAKER) (test dwgr=736) 0.32 K/ L 0.04-0.54 BASOPHILS ABSOLUTE COUNT (BEAKER) (test wcbl=786) 0.07 K/ L 0.01-0.08 IMMATURE GRANULOCYTES-RELATIVE PERCENT (BEAKER) (test eibh=7286) 0 % 0-1
--- OUTSIDE RECORDS SUMMARY | 2018-08-05 02:56 | XMS REPORT | Clinical Summary ---
Author Author CARLOS EDUARDO [facility] Address Unknown Phone Unavailable Care Team Providers Care Director [employer] Name Role Phone Luis Barker PCP Unavailable Allergies Comments Active Allergy Reactions Severity Noted Date "effected my kidneys" Sulfamethoxazole-Trimetho Other (See 04/05/2017 prim Comments) Clarithromycin Palpitations Low 01/18/2017 Medications End Date Status Medication Sig Dispensed Refills Start Date Active atorvastatin (LIPITOR) 20 Take 20 mg by 0 MG tablet mouth daily. Active cholecalciferol, vitamin Take 3,000 0 D3, 3,000 unit Tab Units by mouth daily. Active CYANOCOBALAMIN, VITAMIN Take by 0 B-12, (VITAMIN B-12 ORAL) mouth. Active DULoxetine (CYMBALTA) 30 Take 30 mg by 0 MG capsule mouth daily. Active insulin glargine (LANTUS) Inject 20 0 100 unit/mL injection Units subcutaneousl y every morning Use as directed . Active insulin lispro (HUMALOG) Inject 0 100 unit/mL InPn subcutaneousl y 3 (three) times daily with meals. Active MULTIVITAMIN ORAL Take by mouth 0 daily . Active OMEGA-3S/DHA/EPA/FISH OIL Take by 0 (OMEGA 3 ORAL) mouth. Active tamsulosin (FLOMAX) 0.4 Take 0.4 mg 0 mg Cp24 24 hr capsule by mouth nightly . Active aspirin 81 MG EC tablet Take 81 mg by 0 mouth daily. Active famotidine (PEPCID) 20 MG Take 20 mg by 0 tablet mouth daily. 8 Active metoprolol (LOPRESSOR) 50 Take 50 mg by 0 MG tablet mouth 2 (two) times daily. Active amiodarone (PACERONE) 200 Take 200 mg 0 MG tablet by mouth daily. Active insulin glargine (LANTUS) Inject 15 0 100 unit/mL injection Units subcutaneousl y nightly Use as directed . Active fluticasone (FLONASE) 50 2 sprays by 0 mcg/actuation nasal spray Nasal route as needed for Rhinitis. 02/25/2019 Active finasteride (PROSCAR) 5 Take 1 tablet 30 tablet 0 02/25/201 mg tablet (5 mg total) 8 by mouth daily. 02/24/2019 Active torsemide (DEMADEX) 20 MG Take 2 60 tablet 0 201 tablet tablets (40 8 mg total) by mouth 2 (two) times daily. 02/21/2018 Discontinued loratadine (CLARITIN) 10 Take 10 mg by 0 mg tablet mouth as needed for Allergies. 02/21/2018 Discontinued valsartan-hydrochlorothia Take 1 tablet 0 zide (DIOVAN-HCT) by mouth 160-12.5 mg per tablet daily. 02/24/2018 Discontinued furosemide (LASIX) 80 MG Take 80 mg by 0 tablet mouth 2 (two) times daily. 02/24/2018 Discontinued torsemide (DEMADEX) 20 MG Take 2 60 tablet 0 tablet tablets (40 8 mg total) by mouth daily. 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 05/30/2017 Benign localized hyperplasia of prostate with urinary obstruction 03/11/2017 BPH (benign prostatic hyperplasia) 03/11/2017 Resolved Problems Problem Noted Date Resolved Date Acute on chronic diastolic congestive heart failure 02/21/2018 02/21/2018 Stage 5 chronic kidney disease not on chronic dialysis 02/21/2018 02/21/2018 Encounters Care Team Description Date Type Specialty Delma Bustillos MD [facility], MD Alyce Mcmullen, MD Alberta Berrios, Mario Morrison MD Acute pulmonary edema (HCC) (Primary Dx); Acute on chronic renal insufficiency; Abdominal pain, acute, right upper quadrant 02/20/2018 Hospital Cardiology - Encounter 02/24/2018 02/20/2018 Orders Only General Internal Medicine after 08/04/2017 Social History Date Tobacco Use Types Packs/Day Years Used Light Tobacco Smoker Cigars Smokeless Tobacco: Never Used Alcohol Use Drinks/Week oz/Week Comments Yes occasionally Sex Assigned at Date Recorded Not on file Industry Job Start Date Occupation Not on file Not on file Not on file Travel End Travel History Travel Start No recent travel history available. Last Filed Vital Signs Time Taken Vital Sign Reading 02/24/2018 7:47 AM CDT Blood Pressure 147/66 02/24/2018 7:47 AM CDT Pulse 73 02/24/2018 7:47 AM CDT Temperature 36.4 C (97.5 F) 02/24/2018 7:47 AM CDT Respiratory Rate 18 02/24/2018 7:47 AM CDT Oxygen Saturation 93% - Inhaled Oxygen - Concentration 02/23/2018 6:57 AM CDT Weight 93 kg (205 lb 0.4 oz) 02/21/2018 2:22 AM CDT Height 182.9 cm (6') 02/23/2018 6:57 AM CDT Body Mass Index 27.81 Plan of Treatment Not on file Procedures Comments Procedure Name Priority Date/Time Associated Diagnosis RHYTHM STRIP - SCAN 02/25/2018 2:51 PM CDT POCT-GLUCOSE METER Routine 02/24/2018 8:25 AM CDT BASIC METABOLIC PANEL (7) Routine 02/24/2018 4:36 AM CDT POCT-GLUCOSE METER Routine 02/23/2018 8:59 PM CDT POCT-GLUCOSE METER Routine 02/23/2018 5:21 PM CDT POCT-GLUCOSE METER Routine 02/23/2018 1:23 PM CDT POCT-GLUCOSE METER Routine 02/23/2018 7:12 AM CDT BASIC METABOLIC PANEL (7) Routine 02/23/2018 4:32 AM CDT POCT-GLUCOSE METER Routine 02/22/2018 7:26 PM CDT POCT-GLUCOSE METER Routine 02/22/2018 5:59 PM CDT POCT-GLUCOSE METER Routine 02/22/2018 11:58 AM CDT POCT-GLUCOSE METER Routine 02/22/2018 7:49 AM CDT IRON, TIBC, % SAT. Routine 02/22/2018 (WITHOUT FERRITIN) 4:22 AM CDT CBC (HEMOGRAM ONLY) Routine 02/22/2018 4:22 AM CDT BASIC METABOLIC PANEL (7) Routine 02/22/2018 4:22 AM CDT POCT-GLUCOSE METER Routine 02/21/2018 9:17 PM CDT TRANSFUSION SERVICE 02/21/2018 REPORT - SCAN 5:44 PM CDT POCT-GLUCOSE METER Routine 02/21/2018 5:14 PM CDT POCT-GLUCOSE METER Routine 02/21/2018 11:58 AM CDT POCT-GLUCOSE METER Routine 02/21/2018 7:17 AM CDT URINALYSIS W/ REFLEX STAT 02/21/2018 URINE CULTURE 2:48 AM CDT CBC W/PLT COUNT & AUTO Routine 02/21/2018 DIFFERENTIAL 1:45 AM CDT MAGNESIUM Routine 02/21/2018 1:45 AM CDT PROTHROMBIN TIME/INR Routine 02/21/2018 1:45 AM CDT BASIC METABOLIC PANEL (7) Routine 02/21/2018 1:45 AM CDT CBC W/PLT COUNT & AUTO Routine 02/21/2018 DIFFERENTIAL 1:45 AM CDT TROPONIN I Routine 02/21/2018 1:45 AM CDT ED ECG INTERPRETATION Routine 02/20/2018 11:43 PM CDT CRITICAL CARE Routine 02/20/2018 11:43 PM CDT POCT-GLUCOSE METER Routine 02/20/2018 11:22 PM CDT ECG 12-LEAD STAT 02/20/2018 10:[address] CHEST WITHOUT IV STAT 02/20/2018 CONTRAST 10:[address] ABDOMEN/PELVIS WITHOUT STAT 02/20/2018 IV CONTRAST 10:47 PM CDT US ABDOMEN LIMITED STAT 02/20/2018 8:38 PM CDT XR CHEST 2 VIEWS STAT 02/20/2018 7:51 PM CDT POCT-GLUCOSE METER Routine 02/20/2018 7:22 PM CDT CBC W/PLT COUNT & AUTO STAT 02/20/2018 DIFFERENTIAL 7:21 PM CDT TYPE AND SCREEN, STAT 02/20/2018 AUTOMATED 7:21 PM CDT TROPONIN I STAT 02/20/2018 7:21 PM CDT CREATINE KINASE (CK), STAT 02/20/2018 TOTAL AND MB 7:21 PM CDT B-TYPE NATRIURETIC FACTOR STAT 02/20/2018 (BNP) 7:21 PM CDT APTT STAT 02/20/2018 7:21 PM CDT PROTHROMBIN TIME/INR STAT 02/20/2018 7:21 PM CDT LIPASE STAT 02/20/2018 7:21 PM CDT HEPATIC FUNCTION PANEL STAT 02/20/2018 7:21 PM CDT BASIC METABOLIC PANEL (7) STAT 02/20/2018 7:21 PM CDT CBC W/PLT COUNT & AUTO STAT 02/20/2018 DIFFERENTIAL 7:21 PM CDT after 08/04/2017 Results * RHYTHM STRIP - SCAN (02/25/2018 2:51 PM CDT) Narrative Performed At * POC-Glucose meter (02/24/2018 8:25 AM CDT) Only the most recent of 15 results within the time period is included. POC-Glucose Meter 328 (H)Comment: Will Repeat 70 - 110 mg/dL [facility] Test/TESTED AT [address] [address] Specimen Blood Performing Organization Address [facility] Cent[facility]ode Phone Number [address] [facility] * Basic Metabolic Panel (02/24/2018 4:36 AM CDT) Only the most recent of 5 results within the time period is included. Sodium 138 136 - 145 meq/L [facility] Potassium 4.0 3.5 - 5.1 meq/L [facility] Chloride 98 98 - 107 meq/L [facility] CO2 28 22 - 29 meq/L [facility] BUN 49 (H) 7 - 21 mg/dL [facility] Creatinine 5.00 (H) 0.57 - 1.25 mg/dL [facility] Glucose 283 (H) 70 - 105 mg/dL [facility] Calcium 8.7 8.4 - 10.2 mg/dL [facility] EGFR 12Comment: ESTIMATED GFR IS mL/min/1.73 sq m [facility] NOT ACCURATE CREATININE [facility] CLEARANCE IN PREDICTING GLOMERULAR FILTRATION RATE. ESTIMATED GFR IS NOT APPLICABLE FOR DIALYSIS PATIENTS. Specimen Blood Performing Organization Address City/[facility]/Zipcode Phone Number [address] [facility] * Iron, TIBC, % sat. (without ferritin) (02/22/2018 4:22 AM CDT) Iron 34 (L) 40 - 160 ug/dL [facility] TIBC 173 (L) 250 - 450 ug/dL [facility] Iron % Saturation 20 20 - 55 % [facility] Specimen Blood Performing Organization Address City/[facility]/Zipcode Phone Number [facility] [address] [place] [address] [facility] * CBC (Hemogram only) (02/22/2018 4:22 AM CDT) WBC 6.9 3.5 - 10.5 K/L [facility] RBC 2.76 (L) 4.63 - 6.08 M/L [facility] Hemoglobin 8.0 (L) 13.7 - 17.5 GM/DL [facility] Hematocrit 25.6 (L) 40.1 - 51.0 % [facility] MCV 92.8 (H) 79.0 - 92.2 fL [facility] MCH 29.0 25.7 - 32.2 pg [facility] MCHC 31.3 (L) 32.3 - 36.5 GM/DL [facility] RDW 13.7 11.6 - 14.4 % [facility] Platelets 542 (H) 150 - 450 K/CU MM [facility] MPV 10.4 9.4 - 12.4 fL [facility] nRBC 0 0 - 0 /100 WBC [facility] Specimen Blood Performing Organization Address City/[facility]/Zipcode Phone Number [facility] [address] [place] [address] [facility] * TRANSFUSION SERVICE REPORT - SCAN (02/21/2018 5:44 PM CDT) Narrative Performed At * Urinalysis w/Microscopic + Reflex to Culture (02/21/2018 2:48 AM CDT) Color, UA Light Yellow [facility] Clarity, UA Clear [facility] Specific [place], UA 1.007 1.001 - 1.035 [facility] pH, UA 5.5 5.0 - 8.0 [facility] Protein, UA 20 mg/dL (A) Negative [facility] Glucose, UA Negative Negative [facility] Ketones, UA Negative Negative [facility] Bilirubin, UA Negative Negative [facility] Blood, UA Trace (A) Negative [facility] Nitrite, UA Negative Negative [facility] Leukocytes, UA Negative Negative [facility] Urobilinogen, UA 0.2 0.2 - 1.0 mg/dL [facility] RBC, UA 5 /HPF [facility] WBC, UA <1 /HPF [facility] Mucus Rare [facility] Hyaline Casts, UA 1 /LPF [facility] Specimen Source [facility] Specimen Urine - Urine, Clean Catch Performing Organization Address City/State/Zipcode Phone Number [facility] [address] [place] [address] [facility] * CBC with platelet count + automated diff (02/21/2018 1:45 AM CDT) Only the most recent of 2 results within the time period is included. WBC 7.4 3.5 - 10.5 K/L [facility] RBC 2.67 (L) 4.63 - 6.08 M/L [facility] Hemoglobin 7.8 (L) 13.7 - 17.5 GM/DL [facility] Hematocrit 24.6 (L) 40.1 - 51.0 % [facility] MCV 92.1 79.0 - 92.2 fL [facility] MCH 29.2 25.7 - 32.2 pg [facility] MCHC 31.7 (L) 32.3 - 36.5 GM/DL [facility] RDW 13.7 11.6 - 14.4 % [facility] Platelets 457 (H) 150 - 450 K/CU MM [facility] MPV 10.2 9.4 - 12.4 fL [facility] nRBC 0 0 - 0 /100 WBC [facility] % Neutros 64 % [facility] % Lymphs 19 % [facility] % Monos 10 % [facility] % Eos 6 % [facility] % Baso 1 % [facility] # Neutros 4.75 1.78 - 5.38 K/L [facility] # Lymphs 1.41 1.32 - 3.57 K/L [facility] # Monos 0.72 0.30 - 0.82 K/L [facility] # Eos 0.46 0.04 - 0.54 K/L [facility] # Baso 0.06 0.01 - 0.08 K/L [facility] Immature 0 0 - 1 % [facility] Granulocytes-[facility] Specimen Blood - Arm, Left Performing Organization Address City/State/Zipcode Phone Number [facility] [address] [place] [address] [facility] * Troponin I (02/21/2018 1:45 AM CDT) Only the most recent of 2 results within the time period is included. Troponin I 0.27 (HH) 0.00 - 0.03 ng/mL [facility] Specimen Blood - Arm, Left Narrative Performed At Troponin I (TnI) levels must be interpreted in the context of the presenting [facility] symptoms and the clinical findings. Elevated TnI levels indicate myocardial [facility] damage, but are not specific for ischemic heart disease. Elevated TnI levels are seen in patients with other cardiac conditions (including myocarditis and congestive heart failure), and slight TnI elevations occur in patients with other conditions, including sepsis, renal failure, acidosis, acute neurological disease, and persistent tachyarrhythmia. Performing Organization Address [facility] [place] [address] [phone] [place] [address] * Prothrombin time/INR (02/21/2018 1:45 AM CDT) Only the most recent of 2 results within the time period is included. Protime 15.8 (H) 11.7 - 14.7 seconds [facility] INR 1.3 <=5.9 [facility] Specimen Blood - Arm, Left Narrative Performed At RECOMMENDED COUMADIN/WARFARIN INR THERAPY RANGES [facility] STANDARD DOSE: 2.0 - 3.0 Includes: PROPHYLAXIS for venous thrombosis, [facility] systemic embolization; TREATMENT for venous thrombosis and/or pulmonary embolus. HIGH RISK: Target INR is 2.5-3.5 for patients with mechanical heart valves. Performing Organization Address [facility] [place] [address] [facility] * Magnesium (02/21/2018 1:45 AM CDT) Magnesium 1.7 1.6 - 2.6 mg/dL [facility] Specimen Blood - Arm, Left Performing Organization Address [facility] Centercode Phone Number [place] [phone] [facility] * ED ECG Interpretation (02/20/2018 11:43 PM CDT) Narrative Performed At Roxanne Roth MD 02/20/2018 11:43 PM ECG/EKG Interpretation Date/Time: 02/20/2018 11:42 PM Performed by: ROXANNE ROTH Authorized by: ROXANNE ROTH The ECG was interpreted by ED physician. The ECG is interpreted as sinus rhythm. Rate is normal rate. Heart rate is 72 BPM. Conduction: conduction normal. ST segments normal. T waves abnormal. [place] is normal. Clinical Impression: abnormal ECGECG reviewed and does not meet STEMI criteria. * CRITICAL CARE (02/20/2018 11:43 PM CDT) Narrative Performed At Roxanne Roth MD 02/20/2018 11:43 PM Critical Care Performed by: ROXANNE ROTH Authorized by: ROXANNE ROTH Total critical care time: 36 minutes Critical care time was exclusive of separately billable procedures and treating other patients. Critical care was necessary to treat or prevent imminent or life-threatening deterioration of the following conditions: cardiac failure and renal failure. Critical care was time spent personally by me on the following activities: development of treatment plan with patient or surrogate, discussions with consultants, evaluation of patient's response to treatment, examination of patient, obtaining history from patient or surrogate, ordering and performing treatments and interventions, ordering and review of laboratory studies, ordering and review of radiographic studies, pulse oximetry, re-evaluation of patient's condition and review of old charts. * ECG 12 lead (02/20/2018 10:48 PM CDT) Narrative Performed At Ventricular Rate 72 BPM GE MUSE Atrial Rate 72 BPM P-R Interval 150 ms QRS Duration 96 ms Q-T Interval 420 ms QTC Calculation(Bazett) 459 ms P [place] 67 degrees R [place] 5 degrees T [place] 92 degrees Normal sinus rhythm Nonspecific ST and T wave abnormality Abnormal ECG When compared with ECG of 18-JAN-2017 18:32, Nonspecific T wave abnormality now evident in Lateral leads Confirmed by MD TOD, JEAN MARIE Lechuga ([id number]) on 02/21/2018 8:00:20 AM Procedure Note Interface, External Ris In - 02/21/2018 8:00 AM CDT Ventricular Rate 72 BPM Atrial Rate 72 BPM P-R Interval 150 ms QRS Duration 96 ms Q-T Interval 420 ms QTC Calculation(Bazett) 459 ms P [place] 67 degrees R [place] 5 degrees T [place] 92 degrees Normal sinus rhythm Nonspecific ST and T wave abnormality Abnormal ECG When compared with ECG of 18-JAN-2017 18:32, Nonspecific T wave abnormality now evident in Lateral leads Confirmed by MD TOD, JEAN MARIE Lechuga ([id number]) on 02/21/2018 8:00:20 AM Performing Organization Address City/State/Zipcode Phone Number [employer] [facility] * CT chest without IV contrast (02/20/2018 10:47 PM CDT) Narrative Performed At FINAL REPORT [employer] EXAM: CT of the chest, without contrast. CT of the abdomen and pelvis, without contrast. CLINICAL HISTORY:Severe abdominal pain and elevated lipase. Pulmonary edema. Shortness of breath. TECHNIQUE:CT images of the chest abdomen and pelvis were obtained without intravenous contrast. The exam was performed according to our departmental dose optimization program which includes automated exposure control, adjustment of the mA and/or kV according to patient's size and/or use of iterative reconstructive technique. COMPARISON:None FINDINGS: CHEST: LOWER NECK: Within normal limits. AIRWAYS, PLEURA AND LUNGS: Patent central tracheobronchial tree. Pulmonary interstitial edema. Small bilateral pleural effusions with associated compressive atelectasis. No pneumothorax. VESSELS: Atherosclerotic calcifications of the aorta and branches. No thoracic aortic aneurysm. Mitral annular calcifications. HEART: Mild cardiomegaly. No pericardial effusion. JUAN AND MEDIASTINUM: Calcified mediastinal and right hilar lymph nodes, likely due to prior granulomatous disease. SOFT TISSUES: Mild bilateral gynecomastia. BONES: Generalized osteopenia. No suspicious osseous lesions. ABDOMEN AND PELVIS: LIVER: Calcified granulomata. BILE DUCTS: Within normal limits. GALL BLADDER: Cholelithiasis. PANCREAS: Parenchymal atrophy. Question pancreatic divisum. No peripancreatic fat stranding or fluid collection. SPLEEN: Calcified granulomata. ADRENALS: Within normal limits. KIDNEYS/URETERS: Within normal limits. URINARY BLADDER: Distended and thin-walled. Tiny focus of air in the urinary bladder may be due to infection or recent instrumentation. REPRODUCTIVE ORGANS: Within normal limits. BOWEL/MESENTERY: No bowel obstruction or abnormal wall thickening. Normal appendix. PERITONEUM/RETROPERITONEUM: No free air, free fluid or fluid collection. VESSELS: Calcific atherosclerosis. No abdominal aortic aneurysm. LYMPH NODES: No abdominal or pelvic lymphadenopathy. SOFT TISSUES: Small fat-containing bilateral inguinal hernias. Small fat-containing umbilical hernia. Mild anasarca. BONES: Generalized osteopenia. No suspicious osseous lesions. IMPRESSION: Chest CT: Pulmonary interstitial edema small bilateral pleural effusions. Mild cardiomegaly. Evidence of prior granulomatous disease. CT abdomen and pelvis: No CT evidence of acute pancreatitis. Question pancreatic divisum (anatomic variant). MRI may be helpful for further evaluation if clinically warranted. Tiny focus of air in the urinary bladder may be due to infection or recent instrumentation. Clinical correlation is recommended. Cholelithiasis without CT evidence for acute cholecystitis. Signed: Anu Mendoza MD Report Verified Date/Time:02/20/2018 23:31:16 Reading Location: [facility] [id number] CT Body Reading Room Procedure Note Interface, External Ris In - 02/20/2018 11:33 PM CDT FINAL REPORT EXAM: CT of the chest, without [...] None FINDINGS: CHEST: LOWER NECK: Within normal limits. AIRWAYS, PLEURA AND LUNGS: Patent central tracheobronchial tree. Pulmonary interstitial edema. Small bilateral pleural effusions with associated compressive atelectasis. No pneumothorax. VESSELS: Atherosclerotic calcifications of the aorta and branches. No thoracic aortic aneurysm. Mitral annular calcifications. HEART: Mild cardiomegaly. No pericardial effusion. JUAN AND MEDIASTINUM: Calcified mediastinal and right hilar lymph nodes, likely due to prior granulomatous disease. SOFT TISSUES: Mild bilateral gynecomastia. BONES: Generalized osteopenia. No suspicious osseous lesions. ABDOMEN AND PELVIS: LIVER: Calcified granulomata. BILE DUCTS: Within normal limits. GALL BLADDER: Cholelithiasis. PANCREAS: Parenchymal atrophy. Question pancreatic divisum. No peripancreatic fat stranding or fluid collection. SPLEEN: Calcified granulomata. ADRENALS: Within normal limits. KIDNEYS/URETERS: Within normal limits. URINARY BLADDER: Distended and thin-walled. Tiny focus of air in the urinary bladder may be due to infection or recent instrumentation. REPRODUCTIVE ORGANS: Within normal limits. BOWEL/MESENTERY: No bowel obstruction or abnormal wall thickening. Normal appendix. PERITONEUM/RETROPERITONEUM: No free air, free fluid or fluid collection. VESSELS: Calcific atherosclerosis. No abdominal aortic aneurysm. LYMPH NODES: No abdominal or pelvic lymphadenopathy. SOFT TISSUES: Small fat-containing bilateral inguinal hernias. Small fat-containing umbilical hernia. Mild anasarca. BONES: Generalized osteopenia. No suspicious osseous lesions. IMPRESSION: Chest CT: Pulmonary interstitial edema small bilateral pleural effusions. Mild cardiomegaly. Evidence of prior granulomatous disease. CT abdomen and pelvis: No CT evidence of acute pancreatitis. Question pancreatic divisum (anatomic variant). MRI may be helpful for further evaluation if clinically warranted. Tiny focus of air in the urinary bladder may be due to infection or recent instrumentation. Clinical correlation is recommended. Cholelithiasis without CT evidence for acute cholecystitis. Signed: Anu Mendoza MD Report Verified Date/Time: 02/20/2018 23:31:16 Reading Location: [address] Body Reading Room Performing Organization Address City/State/Zipcode Phone Number [employer] * CT abdomen/pelvis without iv contrast (02/20/2018 10:47 PM CDT) Narrative Performed At FINAL REPORT [facility] EXAM: CT of the chest, without contrast. CT of the abdomen and pelvis, without contrast. CLINICAL HISTORY:Severe abdominal pain and elevated lipase. Pulmonary edema. Shortness of breath. TECHNIQUE:CT images of the chest abdomen and pelvis were obtained without intravenous contrast. The exam was performed according to our departmental dose optimization program which includes automated exposure control, adjustment of the mA and/or kV according to patient's size and/or use of iterative reconstructive technique. COMPARISON:None FINDINGS: CHEST: LOWER NECK: Within normal limits. AIRWAYS, PLEURA AND LUNGS: Patent central tracheobronchial tree. Pulmonary interstitial edema. Small bilateral pleural effusions with associated compressive atelectasis. No pneumothorax. VESSELS: Atherosclerotic calcifications of the aorta and branches. No thoracic aortic aneurysm. Mitral annular calcifications. HEART: Mild cardiomegaly. No pericardial effusion. JUAN AND MEDIASTINUM: Calcified mediastinal and right hilar lymph nodes, likely due to prior granulomatous disease. SOFT TISSUES: Mild bilateral gynecomastia. BONES: Generalized osteopenia. No suspicious osseous lesions. ABDOMEN AND PELVIS: LIVER: Calcified granulomata. BILE DUCTS: Within normal limits. GALL BLADDER: Cholelithiasis. PANCREAS: Parenchymal atrophy. Question pancreatic divisum. No peripancreatic fat stranding or fluid collection. SPLEEN: Calcified granulomata. ADRENALS: Within normal limits. KIDNEYS/URETERS: Within normal limits. URINARY BLADDER: Distended and thin-walled. Tiny focus of air in the urinary bladder may be due to infection or recent instrumentation. REPRODUCTIVE ORGANS: Within normal limits. BOWEL/MESENTERY: No bowel obstruction or abnormal wall thickening. Normal appendix. PERITONEUM/RETROPERITONEUM: No free air, free fluid or fluid collection. VESSELS: Calcific atherosclerosis. No abdominal aortic aneurysm. LYMPH NODES: No abdominal or pelvic lymphadenopathy. SOFT TISSUES: Small fat-containing bilateral inguinal hernias. Small fat-containing umbilical hernia. Mild anasarca. BONES: Generalized osteopenia. No suspicious osseous lesions. IMPRESSION: Chest CT: Pulmonary interstitial edema small bilateral pleural effusions. Mild cardiomegaly. Evidence of prior granulomatous disease. CT abdomen and pelvis: No CT evidence of acute pancreatitis. Question pancreatic divisum (anatomic variant). MRI may be helpful for further evaluation if clinically warranted. Tiny focus of air in the urinary bladder may be due to infection or recent instrumentation. Clinical correlation is recommended. Cholelithiasis without CT evidence for acute cholecystitis. Signed: Anu Mendoza MD Report Verified Date/Time:02/20/2018 23:31:16 Reading Location: [facility] B1 C013Y CT Body Reading Room Procedure Note Interface, External Ris In - 02/20/2018 11:33 PM CDT FINAL REPORT EXAM: CT of the chest, without [...] None FINDINGS: CHEST: LOWER NECK: Within normal limits. AIRWAYS, PLEURA AND LUNGS: Patent central tracheobronchial tree. Pulmonary interstitial edema. Small bilateral pleural effusions with associated compressive atelectasis. No pneumothorax. VESSELS: Atherosclerotic calcifications of the aorta and branches. No thoracic aortic aneurysm. Mitral annular calcifications. HEART: Mild cardiomegaly. No pericardial effusion. JUAN AND MEDIASTINUM: Calcified mediastinal and right hilar lymph nodes, likely due to prior granulomatous disease. SOFT TISSUES: Mild bilateral gynecomastia. BONES: Generalized osteopenia. No suspicious osseous lesions. ABDOMEN AND PELVIS: LIVER: Calcified granulomata. BILE DUCTS: Within normal limits. GALL BLADDER: Cholelithiasis. PANCREAS: Parenchymal atrophy. Question pancreatic divisum. No peripancreatic fat stranding or fluid collection. SPLEEN: Calcified granulomata. ADRENALS: Within normal limits. KIDNEYS/URETERS: Within normal limits. URINARY BLADDER: Distended and thin-walled. Tiny focus of air in the urinary bladder may be due to infection or recent instrumentation. REPRODUCTIVE ORGANS: Within normal limits. BOWEL/MESENTERY: No bowel obstruction or abnormal wall thickening. Normal appendix. PERITONEUM/RETROPERITONEUM: No free air, free fluid or fluid collection. VESSELS: Calcific atherosclerosis. No abdominal aortic aneurysm. LYMPH NODES: No abdominal or pelvic lymphadenopathy. SOFT TISSUES: Small fat-containing bilateral inguinal hernias. Small fat-containing umbilical hernia. Mild anasarca. BONES: Generalized osteopenia. No suspicious osseous lesions. IMPRESSION: Chest CT: Pulmonary interstitial edema small bilateral pleural effusions. Mild cardiomegaly. Evidence of prior granulomatous disease. CT abdomen and pelvis: No CT evidence of acute pancreatitis. Question pancreatic divisum (anatomic variant). MRI may be helpful for further evaluation if clinically warranted. Tiny focus of air in the urinary bladder may be due to infection or recent instrumentation. Clinical correlation is recommended. Cholelithiasis without CT evidence for acute cholecystitis. Signed: Anu Mendoza MD Report Verified Date/Time: 02/20/2018 23:31:16 Reading Location: [facility] B1 C013Y CT Body Reading Room Performing Organization Address City/State/Zipcode Phone Number GE RIS * US abdomen limited (02/20/2018 8:38 PM CDT) Narrative Performed At FINAL REPORT [facility] Abdominal ultrasound dated 02/20/2018 Comment:Real-time transabdominal ultrasound of the right upper quadrant abdomen was performed. Liver is normal in size and measures 15.1 cm in length. The echogenicity of the liver is heterogeneous.No focal lesion is noted in the liver. Gallbladder is distended. Multiple gallstones are present. No biliary dilatation is seen. Common bile duct measures 4 mm in diameter.Main portal vein measures 9 mm in diameter. Pancreas is suboptimally visualized. Right kidney measures 10.2 x 4.4 x 5.4 cm.Echogenicity of the right kidney is normal. No ascites is present in the abdomen. There is small right pleural effusion. Abdominal aorta is normal in caliber. IVC and Hepatic veins are patent. Impression: 1. Cholelithiasis without biliary dilatation. 2. Heterogeneous appearing liver. 3. Small right pleural effusion. Signed: Derek Mukherjee MD Report Verified Date/Time:02/20/2018 21:26:54 Reading Location: [address] Consult Reading Room Procedure Note Interface, External Ris In - 02/20/2018 9:29 PM CDT FINAL REPORT Abdominal ultrasound dated 02/20/2018 Comment: Real-time transabdominal ultrasound of the right upper quadrant abdomen was performed. Liver is normal in size and measures 15.1 cm in length. The echogenicity of the liver is heterogeneous. No focal lesion is noted in the liver. Gallbladder is distended. Multiple gallstones are present. No biliary dilatation is seen. Common bile duct measures 4 mm in diameter. Main portal vein measures 9 mm in diameter. Pancreas is suboptimally visualized. Right kidney measures 10.2 x 4.4 x 5.4 cm. Echogenicity of the right kidney is normal. No ascites is present in the abdomen. There is small right pleural effusion. Abdominal aorta is normal in caliber. IVC and Hepatic veins are patent. Impression: 1. Cholelithiasis without biliary dilatation. 2. Heterogeneous appearing liver. 3. Small right pleural effusion. Signed: Derek Mukherjee MD Report Verified Date/Time: 02/20/2018 21:26:54 Reading Location: [address] Consult Reading Room Performing Organization Address [facility] Phone Number GE [facility] * XR chest 2 views (02/20/2018 7:51 PM CDT) Narrative Performed At FINAL REPORT [facility] PA and lateral chest dated 02/20/2018 Clinical Information: ABDOMINAL PAIN cough, shortness of breath Comment: Heart is in the upper limits of normal in size. Pulmonary vasculature is indistinct. Interstitial disease is seen bilaterally suggestive pulmonary edema. There is trace bilateral pleural effusion. Impression: Interval development of pulmonary edema and trace bilateral pleural effusion. Signed: Derek Mukherjee MD Report Verified Date/Time:02/20/2018 20:12:01 Reading Location: [address] Consult Reading Room Procedure Note Interface, External Ris In - 02/20/2018 8:14 PM CDT FINAL REPORT PA and lateral chest dated 02/20/2018 Clinical Information: ABDOMINAL PAIN cough, shortness of breath Comment: Heart is in the upper limits of normal in size. Pulmonary vasculature is indistinct. Interstitial disease is seen bilaterally suggestive pulmonary edema. There is trace bilateral pleural effusion. Impression: Interval development of pulmonary edema and trace bilateral pleural effusion. Signed: Derek Mukherjee MD Report Verified Date/Time: 02/20/2018 20:12:01 Reading Location: [address] Consult Reading Room Performing Organization Address City/[facility] Phone Number [facility] * Type and screen, automated ([facility] and [facility] only) (02/20/2018 7:21 PM CDT) ABO/RH AUTOMATED (BEAKER) O POSITIVE [facility] Ab Scrn NEGATIVE [facility] Specimen Blood - Arm, Left Performing Organization Address City/[facility]/Zipcode [place] [address] [phone] [place] [address] * PTT (aPTT) (02/20/2018 7:21 PM CDT) PTT 32.0 22.5 - 36.0 seconds [facility] Specimen Blood - Arm, Left Performing Organization Address [facility] Phone Number [place] [phone] * B-type natriuretic peptide (02/20/2018 7:21 PM CDT) BNP 3,263 (H) 0 - 100 pg/mL [facility] Specimen Blood Performing Organization Address [facility] Phone Number [place] [phone] * Lipase (02/20/2018 7:21 PM CDT) Lipase 14 8 - 78 U/L [facility] Specimen Blood - Arm, Left Performing Organization Address [facility] Phone Number [phone] [place] [address] * Creatine Kinase (CK), Total and MB (not available at [facility] [place]) (02/20/2018 7:21 PM CDT) Total CK 230 (H) 29 - 200 U/L [facility] CK-MB 2.0 0.0 - 6.6 ng/mL [facility] MB Relative Index 0.9 % [facility] Specimen Blood Narrative Performed At CK-MB Reference Range: [facility] <6.7Normal [facility] 6.7-10.0Borderline >10.0 Abnormal Performing Organization Address [facility] [place] [address] [phone] [place] [address] * Hepatic function panel (02/20/2018 7:21 PM CDT) Protein, Total 6.8 6.0 - 8.3 gm/dL [facility] Albumin 3.3 (L) 3.5 - 5.0 g/dL [facility] Total Bilirubin 0.3 0.2 - 1.2 mg/dL [facility] Bilirubin, Direct 0.2 0.1 - 0.5 mg/dL [facility] Alkaline Phosphatase 90 40 - 150 U/L [facility] AST 21 5 - 34 U/L [facility] ALT 18 6 - 55 U/L [facility] Specimen Blood - Arm, Left Performing Organization Address City/State/Zipcode Phone Number [facility] [address] [place], [place] [phone] [facility] after 08/04/2017 Insurance Payer Benefit Subscriber ID Type Phone Address Plan / Group [facility] ADV Advance Directives Patient has advance care planning documents, and code status on file. For more i nformation, please contact: [facility] [address] [place] [phone] Date Inactivated Comments Code Status Date Activated 02/24/2018 2:30 PM Full Code 02/21/2018 2:11 AM This code status was determined by: Patient 03/14/2017 2:32 PM Full Code 03/11/2017 7:00 PM This code status was determined by: Patient
[2018-08-05] MEDS ORDERED: ONDANSETRON HCL INJ 2MG/ML 2ML 2 MG/ML VIAL IV STA (03:56)
[2018-08-05] MEDS ORDERED: SODIUM CHLORIDE 0.9% 1000ML 1,000 ML IV SCH (04:00)
[2018-08-05] MEDS ORDERED: POTASSIUM CHLORIDE 10MEQ/100ML 100 ML IV ONE ×3 (04:30→06:45)
--- NOTE | 2018-08-05 05:13 | Diagnostic Imaging Report ---
EXAMINATION: CXR 1 [facility] INDICATION: Low O2 saturations, low blood pressure COMPARISON: None FINDINGS: AP view TUBES and LINES: None. LUNGS: There is mild bibasilar atelectasis. There is no evidence of pneumonia or pulmonary edema. PLEURA: No pleural effusion or pneumothorax. HEART AND MEDIASTINUM: The cardiomediastinal silhouette is unremarkable. BONES AND SOFT TISSUES: No acute osseous lesion. Soft tissues are unremarkable. UPPER ABDOMEN: No free air under the diaphragm. IMPRESSION: No acute thoracic abnormality. Signed by: DR. Yan Tse MD on 08/05/2018 5:09 AM
== END 2018-08-05 06:40 | disposition other institution (70) ==
LOC: FSED 02:51
DX: R11.2 Nausea with vomiting, unspecified (principal); E86.0 Dehydration; E87.6 Hypokalemia; K52.9 Noninfective gastroenteritis and colitis, unspecified; N19 Unspecified kidney failure; I10 Essential (primary) hypertension
CPT/HCPCS: 71045; 80048; 80076; 82553; 83880; 84484; 85025; 93005; 99284; J2405; J3480

== ENCOUNTER 2018-12-14 14:07 | Observation (INO) | payer MEDICARE ==
[~2018-12-14] VITALS: Ht 182.9 cm; Wt 92.1 kg
--- OUTSIDE RECORDS SUMMARY | 2018-12-14 14:10 | XMS REPORT | Clinical Summary ---
Author Author CARLOS EDUARDO [facility] Address Unknown Phone Unavailable Care Team Providers Care Sock Drier Name Role Phone Luis Barker PCP Unavailable [...] Description Date Type Specialty Delma Bustillos MD [facility], MD Alyce Mcmullen, MD Alberta Berrios, Mario Morrison MD Acute pulmonary edema (HCC) (Primary Dx); Acute on chronic renal insufficiency; Abdominal pain, acute, right upper quadrant 02/20/2018 Hospital Cardiology - Encounter 02/24/2018 02/20/2018 Orders Only General Internal Medicine after 12/13/2017 Social History Date Tobacco Use Types Packs/Day [...] Date/Time Associated Diagnosis RHYTHM STRIP - SCAN 08/06/2018 3:45 PM CDT RHYTHM STRIP - SCAN 02/25/2018 2:51 PM [...] STAT 02/20/2018 DIFFERENTIAL 7:21 PM CDT after 12/13/2017 Results * RHYTHM STRIP - SCAN (08/06/2018 3:45 PM CDT) Only the most recent of 2 results within the time period is included. Narrative Performed At * POC-Glucose meter (02/24/2018 8:25 AM CDT) Only the most recent of 15 results within the time period is included. POC-Glucose Meter 328 (H)Comment: Will Repeat 70 - 110 mg/dL [facility] Test/TESTED AT [address] [address] Specimen Blood Performing Organization Address City/[facility]/Zipcode Phone Number [address] [address] [facility] * Basic Metabolic Panel (02/24/2018 4:36 AM CDT) Only the most recent of 5 results within the time period is included. Sodium 138 136 - 145 meq/L [facility] Potassium 4.0 3.5 - 5.1 meq/L [facility] Chloride 98 98 - 107 meq/L [facility] CO2 28 22 - 29 meq/L [facility] BUN 49 (H) 7 - 21 mg/dL [facility] Creatinine 5.00 (H) 0.57 - 1.25 mg/dL [facility] Glucose 283 (H) 70 - 105 mg/dL [facility] Calcium 8.7 8.4 - 10.2 mg/dL [facility] EGFR 12Comment: ESTIMATED GFR IS mL/min/1.73 sq m [facility] NOT ACCURATE CREATININE [facility] CLEARANCE IN PREDICTING GLOMERULAR FILTRATION RATE. ESTIMATED GFR IS NOT APPLICABLE FOR DIALYSIS PATIENTS. Specimen Blood Performing Organization Address City/[facility]/Zipcode Phone Number [address] [address] [facility] * Iron, TIBC, % sat. (without ferritin) (02/22/2018 4:22 AM CDT) Iron 34 (L) 40 - 160 ug/dL [facility] TIBC 173 (L) 250 - 450 ug/dL [facility] Iron % Saturation 20 20 - 55 % [facility] Specimen Blood Performing Organization Address City/[facility] Cent[facility]ode Phone Number [facility] [address] [place] [address] [facility] * CBC (Hemogram only) (02/22/2018 4:22 AM CDT) WBC 6.9 3.5 - 10.5 K/L [facility] RBC 2.76 (L) 4.63 - 6.08 M/L [facility] Hemoglobin 8.0 (L) 13.7 - 17.5 GM/DL [facility] Hematocrit 25.6 (L) 40.1 - 51.0 % [facility] MCV 92.8 (H) 79.0 - 92.2 fL [facility] MCH 29.0 25.7 - 32.2 pg [facility] MCHC 31.3 (L) 32.3 - 36.5 GM/DL [facility] RDW 13.7 11.6 - 14.4 % [facility] Platelets 542 (H) 150 - 450 K/CU MM [facility] MPV 10.4 9.4 - 12.4 fL [facility] nRBC 0 0 - 0 /100 WBC [facility] Specimen Blood Performing Organization Address City/[facility]/Zipcode Phone Number [facility] [address] [place] [address] [facility] * TRANSFUSION SERVICE REPORT - SCAN (02/21/2018 5:44 PM CDT) Narrative Performed At * Urinalysis w/Microscopic + Reflex to Culture (02/21/2018 2:48 AM CDT) Color, UA Light Yellow [facility] Clarity, UA Clear [facility] Specific [place], UA 1.007 1.001 - 1.035 [facility] pH, UA 5.5 5.0 - 8.0 [facility] Protein, UA 20 mg/dL (A) Negative [facility] Glucose, UA Negative Negative [facility] Ketones, UA Negative Negative [facility] Bilirubin, UA Negative Negative [facility] Blood, UA Trace (A) Negative [facility] Nitrite, UA Negative Negative [facility] Leukocytes, UA Negative Negative [facility] Urobilinogen, UA 0.2 0.2 - 1.0 mg/dL [facility] RBC, UA 5 /HPF [facility] WBC, UA <1 /HPF [facility] Mucus Rare [facility] Hyaline Casts, UA 1 /LPF [facility] Specimen Source [facility] Specimen Urine Performing Organization Address City/State/Zipcode Phone Number [facility] [address] [place] [address] [facility] * CBC with platelet count + automated diff (02/21/2018 1:45 AM CDT) Only the most recent of 2 results within the time period is included. WBC 7.4 3.5 - 10.5 K/L [facility] RBC 2.67 (L) 4.63 - 6.08 M/L [facility] Hemoglobin 7.8 (L) 13.7 - 17.5 GM/DL [facility] Hematocrit 24.6 (L) 40.1 - 51.0 % [facility] MCV 92.1 79.0 - 92.2 fL [facility] MCH 29.2 25.7 - 32.2 pg [facility] MCHC 31.7 (L) 32.3 - 36.5 GM/DL [facility] RDW 13.7 11.6 - 14.4 % [facility] Platelets 457 (H) 150 - 450 K/CU MM [facility] MPV 10.2 9.4 - 12.4 fL [facility] nRBC 0 0 - 0 /100 WBC [facility] % Neutros 64 % [facility] % Lymphs 19 % [facility] % Monos 10 % [facility] % Eos 6 % [facility] % Baso 1 % [facility] # Neutros 4.75 1.78 - 5.38 K/L [facility] # Lymphs 1.41 1.32 - 3.57 K/L [facility] # Monos 0.72 0.30 - 0.82 K/L [facility] # Eos 0.46 0.04 - 0.54 K/L [facility] # Baso 0.06 0.01 - 0.08 K/L [facility] Immature 0 0 - 1 % [facility] Granulocytes-[facility] Specimen Blood Performing Organization Address City/State/Zipcode Phone Number [facility] [address] [place] [address] [facility] * Troponin I (02/21/2018 1:45 AM CDT) Only the most recent of 2 results within the time period is included. Troponin I 0.27 (HH) 0.00 - 0.03 ng/mL [facility] Specimen Blood Narrative Performed At Troponin I (TnI) levels must be interpreted in the context of the presenting [facility] symptoms and the clinical findings. Elevated TnI levels indicate myocardial [facility] damage, but are not specific for ischemic heart disease. Elevated TnI levels are seen in patients with other cardiac conditions (including myocarditis and congestive heart failure), and slight TnI elevations occur in patients with other conditions, including sepsis, renal failure, acidosis, acute neurological disease, and persistent tachyarrhythmia. Performing Organization Address [facility] Centercode Phone Number [address] [address] [facility] * Prothrombin time/INR (02/21/2018 1:45 AM CDT) Only the most recent of 2 results within the time period is included. Protime 15.8 (H) 11.7 - 14.7 seconds [facility] INR 1.3 <=5.9 [facility] Specimen Blood Narrative Performed At RECOMMENDED COUMADIN/WARFARIN INR THERAPY RANGES [facility] STANDARD DOSE: 2.0 - 3.0 Includes: PROPHYLAXIS for venous thrombosis, [facility] systemic embolization; TREATMENT for venous thrombosis and/or pulmonary embolus. HIGH RISK: Target INR is 2.5-3.5 for patients with mechanical heart valves. Performing Organization Address City/[facility]/Zipcode Phone Number [address] [address] [facility] * Magnesium (02/21/2018 1:45 AM CDT) Magnesium 1.7 1.6 - 2.6 mg/dL [facility] Specimen Blood Performing Organization Address [facility] Centercode Phone Number [address] [address] [facility] * ED ECG Interpretation (02/20/2018 11:43 [...] normal. ST segments normal. T waves abnormal. [place] is normal. Clinical Impression: abnormal ECGECG reviewed [...] ECG 12 lead (02/20/2018 10:48 PM CDT) Specimen Narrative Performed At Ventricular Rate 72 BPM GE MUSE Atrial Rate 72 BPM P-R Interval 150 ms QRS Duration 96 ms Q-T Interval 420 ms QTC Calculation(Bazett) 459 ms P [place] 67 degrees R [place] 5 degrees T [place] 92 degrees Normal sinus rhythm Nonspecific ST [...] 420 ms QTC Calculation(Bazett) 459 ms P [place] 67 degrees R [place] 5 degrees T [place] 92 degrees Normal sinus rhythm Nonspecific ST and T wave abnormality Abnormal ECG When compared with ECG of 18-JAN-2017 18:32, Nonspecific T wave abnormality now evident in Lateral leads Confirmed by MD TOD, JEAN MARIE Lechuga ([id number]) on 02/21/2018 8:00:20 AM Performing Organization Address City/State/Zipcode Phone Number Say[facility] MANSI * CT chest without IV contrast (02/20/2018 10:47 PM CDT) Specimen Narrative Performed At FINAL REPORT [facility] EXAM: CT of the chest, without contrast. [...] MD Report Verified Date/Time:02/20/2018 23:31:16 Reading Location: [facility] [id number] CT Body Reading Room Procedure Note [...] Report Verified Date/Time: 02/20/2018 23:31:16 Reading Location: [facility] [id number] CT Body Reading Room Performing Organization Address City/State/Zipcode Phone Number [facility] * CT abdomen/pelvis without iv contrast (02/20/2018 10:47 PM CDT) Specimen Narrative Performed At FINAL REPORT [employer] [facility] EXAM: CT of the chest, without contrast. [...] MD Report Verified Date/Time:02/20/2018 23:31:16 Reading Location: [place] [id number] CT Body Reading Room Procedure Note Interface, [...] Report Verified Date/Time: 02/20/2018 23:31:16 Reading Location: [facility] C0[facility] CT Body Reading Room Performing Organization Address City/State/Zipcode Phone Number Sayah ADRIANA * US abdomen limited (02/20/2018 8:38 PM CDT) Specimen Narrative Performed At FINAL REPORT [facility] Abdominal ultrasound dated 02/20/2018 Comment:Real-time transabdominal ultrasound [...] MD Report Verified Date/Time:02/20/2018 21:26:54 Reading Location: [address] Consult Reading Room Procedure Note Interface, [...] Report Verified Date/Time: 02/20/2018 21:26:54 Reading Location: [address] Consult Reading Room Performing Organization Address City/[facility] Centercode Phone Number [facility] * XR chest 2 views (02/20/2018 7:51 PM CDT) Specimen Narrative Performed At FINAL REPORT RIS PA and lateral chest dated 02/20/2018 [...] MD Report Verified Date/Time:02/20/2018 20:12:01 Reading Location: [address] Consult Reading Room Procedure Note Interface, [...] Report Verified Date/Time: 02/20/2018 20:12:01 Reading Location: [address] Consult Reading Room Performing Organization Address City/[facility] Centercode Phone Number [facility] * Type and screen, automated ([facility] and [facility] only) (02/20/2018 7:21 PM CDT) ABO/RH AUTOMATED (BEAKER) O POSITIVE [facility] Ab Scrn NEGATIVE [facility] Specimen Blood Performing Organization Address City/[facility]/[place] [address] [phone] [place] [address] * PTT (aPTT) (02/20/2018 7:21 PM CDT) PTT 32.0 22.5 - 36.0 seconds [facility] Specimen Blood Performing Organization Address City/[facility] Centercode Phone Number [place] [phone] * B-type natriuretic peptide (02/20/2018 7:21 PM CDT) BNP 3,263 (H) 0 - 100 pg/mL [facility] Specimen Blood Performing Organization Address [facility] Centercome Phone Number [place] [phone] * Lipase (02/20/2018 7:21 PM CDT) Lipase 14 8 - 78 U/L [facility] Specimen Blood Performing Organization Address [facility] Phone Number [place] [phone] [place] [address] * Creatine Kinase (CK), Total and MB (not available at [facility] [place]) (02/20/2018 7:21 PM CDT) Total CK 230 (H) 29 - 200 U/L [facility] CK-MB 2.0 0.0 - 6.6 ng/mL [facility] MB Relative Index 0.9 % [facility] Specimen Blood Narrative Performed At CK-MB Reference Range: [facility] <6.7Normal [facility] 6.7-10.0Borderline >10.0 Abnormal Performing Organization Address [facility] Centercode [place] [address] [phone] [place] [address] * Hepatic function panel (02/20/2018 7:21 PM CDT) Protein, Total 6.8 6.0 - 8.3 gm/dL [facility] Albumin 3.3 (L) 3.5 - 5.0 g/dL [facility] Total Bilirubin 0.3 0.2 - 1.2 mg/dL [facility] Bilirubin, Direct 0.2 0.1 - 0.5 mg/dL [facility] Alkaline Phosphatase 90 40 - 150 U/L [facility] AST 21 5 - 34 U/L [facility] ALT 18 6 - 55 U/L [facility] Specimen Blood Performing Organization Address City/State/Zipcode Phone Number [facility] [address] [place] [phone] [facility] after 12/13/2017 Insurance Payer Benefit Subscriber ID Type Phone Address Plan / Group [employer] xxxxxxxxxxx MEDICARE ADV Advance Directives Patient has advance care planning documents, and code status on file. For more i nformation, please contact: [address] [phone] Date Inactivated Comments Code Status Date Activated 02/24/2018 2:30 PM Full Code 02/21/2018 2:11 AM This code status was determined by: Patient 03/14/2017 2:32 PM Full Code 03/11/2017 7:00 PM This code status was determined by: Patient
[2018-12-14 15:12] LABS: BASOPHILS # (AUTO) 0.1 (0.0-0.1); BASOPHILS % 0.7 % (0.0-1.0); EOSINOPHILS # (AUTO) 0.2 (0.0-0.4); EOSINOPHILS % 1.6 % (0.0-6.0); HEMATOCRIT 37.2 % (38.2-49.6); LYMPHOCYTES # (AUTO) 0.7 (1.0-3.2); LYMPHOCYTES % 5.9 % (18.0-39.1); MEAN CORPUSCULAR HEMOGLOBIN 29.4 pg (28-32); MEAN CORPUSCULAR HGB CONC 32.3 g/dL (31-35); MEAN CORPUSCULAR VOLUME 91.2 fL (81-99); MONOCYTES # (AUTO) 0.7 (0.2-0.8); MONOCYTES % 5.6 % (4.4-11.3); NEUTROPHILS % 85.7 % (38.7-80.0); PLATELET COUNT 363 x10e3/uL (140-360); RED BLOOD COUNT 4.08 x10e6/uL (4.3-5.7); RED CELL DISTRIBUTION WIDTH 13.2 % (11.7-14.4)
[2018-12-14] MEDS ORDERED: SODIUM CHLORIDE 0.9% 500ML 500 ML IV ONE (15:15)
[2018-12-14 15:30] LABS: ALBUMIN 3.9 g/dL (3.5-5.0); ANION GAP 18.4 mmol/L (8-16); CALCIUM 9.6 mg/dL (8.4-10.2); CREATININE, SERUM 4.57 mg/dL (0.72-1.25); POTASSIUM 3.4 mmol/L (3.5-5.1)
[2018-12-14 16:17] LABS: CREATINE KINASE 66 IU/L (30-200)
[2018-12-14] MEDS ORDERED: SODIUM CHLORIDE 0.9% 1000ML 1,000 ML IV ONE (18:30)
[2018-12-14] MEDS ORDERED: DEXTROSE 50% SYRINGE 50 ML IV PRN ×2 (18:30→20:00)
[2018-12-14] MEDS ORDERED: ONDANSETRON HCL INJ 2MG/ML 2ML 2 MG/ML VIAL IV PRN (18:30)
[2018-12-14] MEDS ORDERED: ACETAMINOPHEN 325 MG TAB PO ONE (18:30)
--- OUTSIDE RECORDS SUMMARY | 2018-12-14 18:36 | XMS REPORT | Clinical Summary ---
Author Author CARLOS EDUARDO [facility] Address Unknown Phone Unavailable Care Team Providers Care Laborer/Key Man Name Role Phone Luis Barker PCP Unavailable [...] Description Date Type Specialty Delma Bustillos MD [facility], MD Alyce Mcmullen, MD Alberta Berrios, Mario [...] (H)Comment: Will Repeat 70 - 110 mg/dL Test/TESTED AT [address] [id number] Specimen Blood Performing Organization Address City/[facility]/Zipcode Phone Number [address] [address] [facility] * Basic Metabolic Panel (02/24/2018 4:36 AM CDT) Only the most recent of 5 results within the time period is included. Sodium 138 136 - 145 meq/L [facility] Potassium 4.0 3.5 - 5.1 meq/L [facility] Chloride 98 98 - 107 meq/L [facility] CO2 28 22 - 29 meq/L [facility] BUN 49 (H) 7 - 21 mg/dL [facility] Creatinine 5.00 (H) 0.57 - 1.25 mg/dL [facility] Glucose 283 (H) 70 - 105 mg/dL [facility] Calcium 8.7 8.4 - 10.2 mg/dL [facility] EGFR 12Comment: ESTIMATED GFR IS mL/min/1.73 sq m NOT ACCURATE CREATININE [facility] CLEARANCE IN PREDICTING GLOMERULAR FILTRATION RATE. ESTIMATED GFR IS NOT APPLICABLE FOR DIALYSIS PATIENTS. Specimen Blood Performing Organization Address City/[facility]/Zipcode Phone Number [address] [address] [facility] * Iron, TIBC, % sat. (without ferritin) (02/22/2018 4:22 AM CDT) Iron 34 (L) 40 - 160 ug/dL [facility] TIBC 173 (L) 250 - 450 ug/dL [facility] Iron % Saturation 20 20 - 55 % [facility] Specimen Blood Performing Organization Address City/[facility] Phone Number [facility] [address] [place] [address] [facility] * CBC (Hemogram only) (02/22/2018 4:22 AM CDT) WBC 6.9 3.5 - 10.5 K/L [facility] RBC 2.76 (L) 4.63 - 6.08 M/L [facility] Hemoglobin 8.0 (L) 13.7 - 17.5 GM/DL [facility] Hematocrit 25.6 (L) 40.1 - 51.0 % [facility] MCV 92.8 (H) 79.0 - 92.2 fL [facility] MCH 29.0 25.7 - 32.2 pg [facility] MCHC 31.3 (L) 32.3 - 36.5 GM/DL [facility] RDW 13.7 11.6 - 14.4 % [facility] Platelets 542 (H) 150 - 450 K/CU MM [facility] MPV 10.4 9.4 - 12.4 fL [facility] nRBC 0 0 - 0 /100 WBC [facility] Specimen Blood Performing Organization Address City/[facility]/Zipcode Phone Number [facility] [address] [place] [address] [facility] * TRANSFUSION SERVICE REPORT - SCAN (02/21/2018 5:44 PM CDT) Narrative Performed At * Urinalysis w/Microscopic + Reflex to Culture (02/21/2018 2:48 AM CDT) Color, UA Light Yellow [facility] Clarity, UA Clear [facility] Specific [place], UA 1.007 1.001 - 1.035 [facility] pH, UA 5.5 5.0 - 8.0 [facility] Protein, UA 20 mg/dL (A) Negative [facility] Glucose, UA Negative Negative [facility] Ketones, UA Negative Negative [facility] Bilirubin, UA Negative Negative [facility] Blood, UA Trace (A) Negative [facility] Nitrite, UA Negative Negative [facility] Leukocytes, UA Negative Negative [facility] Urobilinogen, UA 0.2 0.2 - 1.0 mg/dL [facility] RBC, UA 5 /HPF [facility] WBC, UA <1 /HPF [facility] Mucus Rare [facility] Hyaline Casts, UA 1 /LPF [facility] Specimen Source [facility] Specimen Urine Performing Organization Address City/State/Zipcode Phone Number [facility] [address] [place] [address] [facility] * CBC with platelet count + automated diff (02/21/2018 1:45 AM CDT) Only the most recent of 2 results within the time period is included. WBC 7.4 3.5 - 10.5 K/L [facility] RBC 2.67 (L) 4.63 - 6.08 M/L [facility] Hemoglobin 7.8 (L) 13.7 - 17.5 GM/DL [facility] Hematocrit 24.6 (L) 40.1 - 51.0 % [facility] MCV 92.1 79.0 - 92.2 fL [facility] MCH 29.2 25.7 - 32.2 pg [facility] MCHC 31.7 (L) 32.3 - 36.5 GM/DL [facility] RDW 13.7 11.6 - 14.4 % [facility] Platelets 457 (H) 150 - 450 K/CU MM [facility] MPV 10.2 9.4 - 12.4 fL [facility] nRBC 0 0 - 0 /100 WBC [facility] % Neutros 64 % [facility] % Lymphs 19 % [facility] % Monos 10 % [facility] % Eos 6 % [facility] % Baso 1 % [facility] # Neutros 4.75 1.78 - 5.38 K/L [facility] # Lymphs 1.41 1.32 - 3.57 K/L [facility] # Monos 0.72 0.30 - 0.82 K/L [facility] # Eos 0.46 0.04 - 0.54 K/L [facility] # Baso 0.06 0.01 - 0.08 K/L [facility] Immature 0 0 - 1 % Granulocytes-[facility] Specimen Blood Performing Organization Address City/State/Zipcode Phone Number [facility] [address] [place] [address] [facility] * Troponin I (02/21/2018 1:45 AM CDT) Only the most recent of 2 results within the time period is included. Troponin I 0.27 (HH) 0.00 - 0.03 ng/mL [facility] Specimen Blood Narrative Performed At Troponin I (TnI) levels must be interpreted in the context of the presenting symptoms and the clinical findings. Elevated TnI levels indicate myocardial [facility] damage, but are not specific for ischemic heart disease. Elevated TnI levels are seen in patients with other cardiac conditions (including myocarditis and congestive heart failure), and slight TnI elevations occur in patients with other conditions, including sepsis, renal failure, acidosis, acute neurological disease, and persistent tachyarrhythmia. Performing Organization Address [facility] Phone Number [address] [address] [facility] * Prothrombin time/INR (02/21/2018 1:45 AM CDT) Only the most recent of 2 results within the time period is included. Protime 15.8 (H) 11.7 - 14.7 seconds [facility] INR 1.3 <=5.9 [facility] Specimen Blood Narrative Performed At RECOMMENDED COUMADIN/WARFARIN INR THERAPY RANGES STANDARD DOSE: 2.0 - 3.0 Includes: PROPHYLAXIS for venous thrombosis, [facility] systemic embolization; TREATMENT for venous thrombosis and/or pulmonary embolus. HIGH RISK: Target INR is 2.5-3.5 for patients with mechanical heart valves. Performing Organization Address City/[facility]/Zipcode Phone Number [address] [address] [facility] * Magnesium (02/21/2018 1:45 AM CDT) Magnesium 1.7 1.6 - 2.6 mg/dL [facility] Specimen Blood Performing Organization Address [facility] Phone Number [address] [address] [facility] * ED ECG Interpretation (02/20/2018 11:43 PM CDT) Narrative Performed At Roxanne Roth MD 02/20/2018 11:43 PM ECG/EKG Interpretation Date/Time: 02/20/2018 11:42 PM Performed by: ROXANNE ROTH Authorized by: ROXANNE ROHT The ECG was interpreted by ED physician. The ECG is interpreted as sinus rhythm. Rate is normal rate. Heart rate is 72 BPM. Conduction: conduction normal. ST segments normal. T waves abnormal. [place] is normal. Clinical Impression: abnormal ECGECG reviewed [...] 420 ms QTC Calculation(Bazett) 459 ms P [place] 67 degrees R [place] 5 degrees T [place] 92 degrees Normal sinus rhythm Nonspecific ST [...] 420 ms QTC Calculation(Bazett) 459 ms P [place] 67 degrees R [place] 5 degrees T [place] 92 degrees Normal sinus rhythm Nonspecific ST and T wave abnormality Abnormal ECG When compared with ECG of 18-JAN-2017 18:32, Nonspecific T wave abnormality now evident in Lateral leads Confirmed by MD TOD, JEAN MARIE Lechuga ([id number]) on 02/21/2018 8:00:20 AM Performing Organization Address City/State/Zipcode Phone Number [employer] [facility] * CT chest without IV contrast (02/20/2018 10:47 PM CDT) Specimen Narrative Performed At FINAL REPORT [facility] EXAM: CT of the chest, without contrast. [...] MD Report Verified Date/Time:02/20/2018 23:31:16 Reading Location: [facility] C013Y CT Body Reading Room Procedure Note [...] Report Verified Date/Time: 02/20/2018 23:31:16 Reading Location: [facility] C013Y CT Body Reading Room Performing Organization Address City/State/Zipcode Phone Number [employer] * CT abdomen/pelvis without iv contrast (02/20/2018 10:47 PM CDT) Specimen Narrative Performed At FINAL REPORT [facility] EXAM: CT of the chest, without contrast. [...] MD Report Verified Date/Time:02/20/2018 23:31:16 Reading Location: [place] [address]Y CT Body Reading Room Procedure Note Interface, [...] Report Verified Date/Time: 02/20/2018 23:31:16 Reading Location: [facility] C0[facility] CT Body Reading Room Performing Organization Address City/State/Zipcode Phone Number [employer] [facility] * US abdomen limited (02/20/2018 8:38 PM CDT) Specimen Narrative Performed At FINAL REPORT [facility] Abdominal ultrasound dated 02/20/2018 Comment:Real-time transabdominal ultrasound [...] MD Report Verified Date/Time:02/20/2018 21:26:54 Reading Location: [address] Consult Reading Room Procedure Note Interface, [...] Report Verified Date/Time: 02/20/2018 21:26:54 Reading Location: [address] Consult Reading Room Performing Organization Address City/[facility] Phone Number [facility] * XR chest [...] MD Report Verified Date/Time:02/20/2018 20:12:01 Reading Location: [address] Consult Reading Room Procedure Note Interface, [...] Report Verified Date/Time: 02/20/2018 20:12:01 Reading Location: [address] Consult Reading Room Performing Organization Address City/[facility] Phone Number [facility] * Type and screen, automated ([facility] and [facility] only) (02/20/2018 7:21 PM CDT) ABO/RH AUTOMATED (BEAKER) O POSITIVE [facility] Ab Scrn NEGATIVE [facility] Specimen Blood Performing Organization Address City/[facility]/[place] [address] [phone] [place] [address] * PTT (aPTT) (02/20/2018 7:21 PM CDT) PTT 32.0 22.5 - 36.0 seconds [facility] Specimen Blood Performing Organization Address City/[facility] Phone Number [place] [phone] * B-type natriuretic peptide (02/20/2018 7:21 PM CDT) BNP 3,263 (H) 0 - 100 pg/mL [facility] Specimen Blood Performing Organization Address [facility] Phone Number [place] [phone] * Lipase (02/20/2018 7:21 PM CDT) Lipase 14 8 - 78 U/L [facility] Specimen Blood Performing Organization Address [facility] Phone Number [place] [phone] [place] [address] * Creatine Kinase (CK), Total and MB (not available at [facility] [place]) (02/20/2018 7:21 PM CDT) Total CK 230 (H) 29 - 200 U/L [facility] CK-MB 2.0 0.0 - 6.6 ng/mL [facility] MB Relative Index 0.9 % [facility] Specimen Blood Narrative Performed At CK-MB Reference Range: <6.7Normal [facility] 6.7-10.0Borderline >10.0 Abnormal Performing Organization Address [facility] [place] [address] [phone] [place] [address] * Hepatic function panel (02/20/2018 7:21 PM CDT) Protein, Total 6.8 6.0 - 8.3 gm/dL [facility] Albumin 3.3 (L) 3.5 - 5.0 g/dL [facility] Total Bilirubin 0.3 0.2 - 1.2 mg/dL [facility] Bilirubin, Direct 0.2 0.1 - 0.5 mg/dL [facility] Alkaline Phosphatase 90 40 - 150 U/L [facility] AST 21 5 - 34 U/L [facility] ALT 18 6 - 55 U/L [facility] Specimen Blood Performing Organization Address City/State/Zipcode Phone Number [facility] [address] [place] [phone] [facility] after 12/13/2017 Insurance Payer Benefit Subscriber ID Type Phone Address Plan / Group [employer] xxxxxxxxxxx MEDICARE ADV Advance Directives Patient has advance care planning documents, and code status on file. For more i nformation, please contact: [address] [phone] Date Inactivated Comments Code Status Date Activated 02/24/2018 2:30 PM Full Code 02/21/2018 2:11 AM This code status was determined by: Patient 03/14/2017 2:32 PM Full Code 03/11/2017 7:00 PM This code status was determined by: Patient
[2018-12-14 18:38] LABS: CLARITY,URINE CLEAR (CLEAR); COLOR,URINE YELLOW (YELLOW)
[2018-12-14 18:39] LABS: BILIRUBIN,URINE NEGATIVE (NEGATIVE); KETONES,URINE NEGATIVE (NEGATIVE); LEUKOCYTE ESTERASE ,URINE NEGATIVE (NEGATIVE); NITRITE,URINE NEGATIVE (NEGATIVE); PROTEIN,URINE DIPSTICK 1+ (NEGATIVE); URINE UROBILINOGEN 0.2 mg/dL (0.2 - 1)
--- NOTE | 2018-12-14 18:40 | Diagnostic Imaging Report ---
EXAMINATION: CHEST SINGLE (PORTABLE) COMPARISON: Chest x-ray 08/05/2018 INDICATION: ^hypoglycemia ^[id number] ^1825 DISCUSSION: Frontal view of the chest obtained at 1822 hours. HEART AND MEDIASTINUM: The cardiomediastinal silhouette is unremarkable. LINES: None. LUNGS: Mild hyperinflation. No pneumonia or pulmonary edema. PLEURA: No pleural effusion or pneumothorax. BONES AND SOFT TISSUES: No focal osseous lesion. The soft tissues are normal. IMPRESSION: Mild hyperinflation. No acute cardiopulmonary process. Signed by: Dr. Manas Lopez MD on 12/14/2018 6:37 PM
[2018-12-14 19:03] LABS: RBC,URINE 0-5 /HPF (0-5); WBC,URINE (MAN) 0-5 /HPF (0-5)
[2018-12-14 19:04] LABS: TRANSITIONAL EPI CELLS,URINE FEW
[2018-12-14] MEDS ORDERED: POTASSIUM CHLORIDE 20 MEQ TAB CR PO STA (19:53)
[2018-12-14] MEDS ORDERED: INSULIN LISPRO 100 UNIT/1 ML 3ML VIAL SQ SCH (21:00)
[2018-12-14] MEDS: LACTATED RINGER'S 1,000 ML IV SCH (22:03)
--- NOTE | 2018-12-14 22:48 | NUR ---
received report from AMADOR Rowland. per verbal report stat consult to gulshan clifford.
[2018-12-14] MEDS: INSULIN LISPRO 100 UNIT/1 ML 3ML VIAL SQ SCH (23:20)
--- NOTE | 2018-12-14 23:30 | NUR ---
received patient from ER. patient aaox4, amb, resp even and unlabored. vss. tele running SR. IV to R AC 18g IVF infusing per orders. patient able to remember a few home medications, will bring medication list in the AM, along with copy of AD to be placed in chart. updated patient on place of care. denies pain. denies needs. bed locked and in lowest position, call light within easy reach. will continue to monitor the patient.
[2018-12-15] VITALS (7 sets, daily range): BP systolic 132–154; BP diastolic 60–87
[2018-12-15 00:21] LABS: CREATINE KINASE MB 2.2 ng/mL (0-5.0)
--- NOTE | 2018-12-15 01:23 | Diagnostic Imaging Report ---
EXAM: Renal Ultrasound INDICATION: Acute kidney injury COMPARISON: None TECHNIQUE: Transverse and longitudinal images of the kidneys and bladder were obtained. FINDINGS: Right Kidney: Size: 9.1 cm Echogenicity: Normal Parenchymal thickness: Thin Collecting system: No hydronephrosis Stones: None Cyst/Mass: None Left Kidney: Size: 10.3 cm Echogenicity: Normal Parenchymal thickness: Thin Collecting system: No hydronephrosis Stones: None Cyst/Mass: None Bladder: Normal Prostate volume 31.9 cc. IMPRESSION: No hydronephrosis. Thin bilateral renal renal parenchyma may be seen with chronic renal disease. Signed by: Alex Edmonds DO on 12/15/2018 1:19 AM
[2018-12-15] MEDS ORDERED: LANTUS 3ML100 UNITS/ SC (02:01)
[2018-12-15] MEDS ORDERED: LASIX20 MG PO (02:01)
[2018-12-15] MEDS ORDERED: FLOMAX0.4 MG PO (02:01)
[2018-12-15] MEDS ORDERED: ASPIR 8181 MG PO (02:01)
[2018-12-15] MEDS ORDERED: HUMALOG100 UNIT/1 SC (02:01)
--- NOTE | 2018-12-15 02:45 | History and Physical ---
PRIMARY CARE DOCTOR: Dr. Barker. CHIEF COMPLAINT: Confusion. HISTORY OF PRESENT ILLNESS: Mr. Law is a pleasant 73-year-old gentleman with confusion. The patient is a long-standing diabetic. He has been on very stable amounts of treatment for a long time. His current insulin dosing is 15 units at night of Lantus and Lantus 20 units in the morning. He is on sliding scale 3 times a day. He does not get problems with hypoglycemia, except for rare events. The patient was in usual state of health and he was eating very well yesterday. Today, he was seen by his to have confusion and having decreased responsiveness. Family called EMS when they found the blood sugar to be 33. Medications were given including D5W and glucagon. The patient had slow recovery, but was alert and oriented x3 by the time he was in the emergency room. The patient also with longstanding CKD. In 2014, his creatinine was 2.4 and in November 2018, he says it was 3.4. In the emergency room, his creatinine was noted as 4.6. He is admitted. PAST MEDICAL HISTORY: The patient's primary care doctor is Oliver More. Hospital doctor is Dr. Josue Gandhi. Hypertension, diabetes, atrial fibrillation, GERD, CKD, CIDP, BPH. History of cataract surgery and back surgery. MEDICATIONS: Medication list reviewed per the chart record. ALLERGIES: ERYTHROMYCIN, TRIMETHOPRIM, SULFAMETHOXAZOLE. FAMILY HISTORY: Noncontributory. SOCIAL HISTORY: Nonsmoker. No alcohol. No drugs. 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 No occupational exposures noted. REVIEW OF SYSTEMS: GENERAL: No weight changes. OPHTHALMOLOGIC: No double vision. ENT: No mouth ulcers. ENDOCRINE: No known thyroid conditions. PULMONARY: No asthma. CARDIAC: No heart attack. GI: No diarrhea. : No blood in urine. DERMATOLOGIC: No rash. NEUROLOGIC: No seizures. MUSCULOSKELETAL: Mild arthritis. OBJECTIVE: VITAL SIGNS: Afebrile, vital signs as noted per chart. GENERAL: No acute distress, alert, and calm. HEENT: Normocephalic, atraumatic. NECK: Supple. Slightly large, but midline tracheostomy. CARDIOVASCULAR: S1, S2. No murmurs, rubs, or gallops. ABDOMEN: Soft, nontender, obese. EXTREMITIES: No clubbing. No cyanosis. There is no edema. INTEGUMENT: No rash. No purpura. NEUROLOGIC: Grossly nonfocal now, alert, oriented x3. LABORATORY DATA: Labs reviewed per the chart record including 3.4 potassium, 43 BUN, 4.6 creatinine, 27 bicarbonate. 12 white count, 37 hematocrit, 363 platelets. LFTs unremarkable. IMPRESSION AND PLAN: 1. Critical hypoglycemia, recovery so far after intervention. No clearly apparent reason worsening unless he had metabolic changes to insulin processing due to kidney function. 2. [id number] kidney failure. 3. Hypertension. 4. Diabetes. 5. Atrial fibrillation. 6. Gastroesophageal reflux disease. 7. Chronic kidney disease, I believe, stage 3. 8. Chronic inflammatory demyelinating polyneuropathy. 9. Benign prostatic hyperplasia. 10. Hypokalemia, mild. At this time, we will check ultrasound of the kidneys question pending this benign prostatic hyperplasia. Urinalysis done with mostly unremarkable findings. Get renal consult. Repeat blood work in the morning. Give some more IV fluids for now. Decrease the insulin short-term and re-escalate as tolerated. We will follow along closely. Dr. Gandhi and I would like to thank Dr. Barker of [facility] for the opportunity to participate in the care of Mr. Law. Please call for questions. MD JL Song/MODL /[id number]
[2018-12-15 06:52] LABS: ALBUMIN 3.1 g/dL (3.5-5.0); ANION GAP 16.5 mmol/L (8-16); CALCIUM 8.9 mg/dL (8.4-10.2); CREATININE, SERUM 3.94 mg/dL (0.72-1.25); POTASSIUM 3.5 mmol/L (3.5-5.1)
[2018-12-15 07:05] LABS: BASOPHILS # (AUTO) 0.1 (0.0-0.1); BASOPHILS % 0.9 % (0.0-1.0); EOSINOPHILS # (AUTO) 0.3 (0.0-0.4); EOSINOPHILS % 4.2 % (0.0-6.0); HEMATOCRIT 30.7 % (38.2-49.6); LYMPHOCYTES # (AUTO) 1.7 (1.0-3.2); LYMPHOCYTES % 24.4 % (18.0-39.1); MEAN CORPUSCULAR HEMOGLOBIN 29.7 pg (28-32); MEAN CORPUSCULAR HGB CONC 32.6 g/dL (31-35); MEAN CORPUSCULAR VOLUME 91.1 fL (81-99); MONOCYTES # (AUTO) 0.7 (0.2-0.8); MONOCYTES % 10.4 % (4.4-11.3); NEUTROPHILS # (AUTO) 4.1 (2.1-6.9); PLATELET COUNT 295 x10e3/uL (140-360); RED BLOOD COUNT 3.37 x10e6/uL (4.3-5.7); RED CELL DISTRIBUTION WIDTH 13.2 % (11.7-14.4)
[2018-12-15 07:15] LABS: CREATINE KINASE MB 1.6 ng/mL (0-5.0)
[2018-12-15] MEDS: INSULIN LISPRO 100 UNIT/1 ML 3ML VIAL SQ SCH ×2 (07:30→11:52)
--- NOTE | 2018-12-15 07:35 | NUR ---
RECEIVED PATIENT RESTING IN BED, NO SIGNS OF DISTRESS. BED LOW, WHEELS LOCKED, SIDE RAILS X2. CALL LIGHT IN REACH WILL CONTINUE TO MONITOR PATIENT.
[2018-12-15] MEDS ORDERED: MULTI-VITAMIN1 EACH PO (10:29)
[2018-12-15] MEDS ORDERED: AMIODARONE HCL200 MG PO (10:29)
[2018-12-15] MEDS ORDERED: CYMBALTA30 MG PO (10:29)
[2018-12-15] MEDS ORDERED: TORSEMIDE10 MG PO (10:29)
[2018-12-15] MEDS ORDERED: LIPITOR20 MG PO (10:29)
[2018-12-15] MEDS ORDERED: OMEPRAZOLE40 MG PO (10:29)
[2018-12-15] MEDS ORDERED: FINASTERIDE5 MG PO (10:29)
[2018-12-15] MEDS ORDERED: AMLODIPINE BESYL5 MG PO (10:29)
[2018-12-15] MEDS: LACTATED RINGER'S 1,000 ML IV SCH (11:02)
--- NOTE | 2018-12-15 11:52 | NUR ---
WENT TO ADMINISTER 18 UNITS OF HUMALOG FOR PATIENTS BLOOD SUGAR 371. PATIENT STATED THAT 18 UNITS WOULD PUT HIM UNDER. PATIENT CAME IN WITH HYPOGLYCEMIA. PATIENT STATED HE ONLY WANTED TO RECEIVE HALF OF THE DOSE. 9 UNITS ADMINISTERED SQ.
--- NOTE | 2018-12-15 12:02 | NUR ---
REMOVED PATIENTS IV, CATHETER TIP INTACT AND PRESSURE DRESSING APPLIED
--- NOTE | 2018-12-15 12:18 | NUR ---
PATIENT DISCHARGED FROM FACILITY. PATIENT GATHERED ALL PERSONAL BELONGINGS, DISCHARGE INSTRUCTIONS AND FOLLOW UP INFORMATION. LEFT UNIT IN WHEELCHAIR AND WENT HOME VIA PRIVATE AUTO. NO SIGNS OF DISTRESS WHEN LEAVING FACILITY.
--- NOTE | 2018-12-15 16:18 | Consultation ---
DATE OF CONSULTATION: 12/15/2018 HISTORY OF PRESENT ILLNESS: Mr. Velazquez is known to our Nephrology Service, has an underlying history of CKD-4, presented with hypoglycemia, being managed by [facility] [employer] box operator, Dr. Vincent Lopez. Currently, awake, alert, resting, no apparent distress. Denies shortness of breath, nausea, or vomiting. Eager to go home. PAST MEDICAL HISTORY: Significant for diabetes for about 45 years, insulin dependent, underlying history of hypertension, history of NE, but no PCI or stents, had history of prior TURP, has history of hyperlipidemia. ALLERGIES: ERYTHROMYCIN AND BACTRIM. CURRENT MEDICATIONS: Include: 1. LR at 70 mL an hour, which I am going to stop. 2. He is on normal saline. He received a bag of normal saline. 3. He is on Tylenol p.r.n. 4. He is on insulin per protocol. 5. He is on ondansetron p.r.n. SOCIAL HISTORY: He does not smoke or drink. FAMILY HISTORY: Significant for diabetes. by bedside. PHYSICAL EXAMINATION: GENERAL: Awake, alert, lying supine in bed, in distress. VITAL SIGNS: Blood pressure 154/87, pulse rate 88, afebrile, respiratory rate 17. HEAD AND NECK: Cornea clear. Mucosa moist. Neck veins flat. LUNGS: Clear. No rales. HEART: S1, S2 audible. ABDOMEN: Otherwise soft, nontender. EXTREMITIES: Lower extremity examination shows no edema. IMPRESSION AND PLAN: Hypoglycemia, most likely because of longer half-life of insulin given his progressive renal failure. The patient has chronic kidney disease 4. No acute indications for dialysis, but I would suggest switching him to short-acting insulin with a shorter half-life sparing or cutting down the dose of long-acting insulin by at least 50% with close monitoring of blood sugars given his borderline kidney function. Otherwise, the patient clinically asymptomatic. His blood pressure is controlled. His volume status is stable. There is no active source of infection. He is good to go home from my standpoint to follow up in our office in one months' time or sooner. The patient's to keep close telephone contact with our office. MD DARYL Luo/CAROLINA /[id number]
--- NOTE | 2018-12-16 00:10 | NUR ---
discharge summary [id number]
--- NOTE | 2018-12-16 12:23 | Discharge Summary ---
PRIMARY CARE PHYSICIAN: Dr. Barker. HOSPITAL DOCTOR: Dr. Josue Gandhi. PRIMARY DIAGNOSES: 1. Critical hypoglycemia. 2. [id number] kidney failure. SECONDARY DIAGNOSES: Include: 1. Diabetes. 2. Hypertension. 3. History of myocardial infarction. 4. Transurethral resection of prostate. 5. Hyperlipidemia. HOSPITAL COURSE: Mr. Law was admitted for observation with refractory glucose levels as low as 33. The patient's creatinine was above his baseline at 4.6. The patient was admitted to observation. He had improvement in the glucose control, noting he did have the long-acting insulin the day he was admitted on December 14. His creatinine improved after some hydration. He was allowed to go home by Nephrology and primary care team felt he was stable now and improving. He was recommended to cut down his long-acting insulin significantly, especially in the morning insulin should be stopped to prevent life time hypoglycemia when he is not around people. MEDICATIONS AT DISCHARGE: See discharge medication record for details. DIET: The patient to be on diabetic, cardiac diet. ACTIVITY: As tolerated. FOLLOWUP: With Dr. Barker and Endocrinology, and he should not go back up on his insulin until seen by them. Greater than 30 minutes in direct care and coordination on the day of discharge, December 15, 2018. MD JL Song/FREDYL /[id number]
== END 2018-12-15 12:18 | disposition home or self-care (01) ==
LOC: ER 14:07 → INTOOBSV 18:16 → ERHOLD 18:16 → MED/SURG 23:32
PROVIDERS: ADMIT Internal Medicine Critical Care Medicine; ATTEND Internal Medicine Critical Care Medicine
DX: E11.649 Type 2 diabetes mellitus with hypoglycemia without coma (principal); E11.22 Type 2 diabetes mellitus with diabetic chronic kidney disease; Z83.3 Family history of diabetes mellitus; Z82.49 Family history of ischemic heart disease and other diseases of the circulatory system; K21.9 Gastro-esophageal reflux disease without esophagitis; I12.9 Hypertensive chronic kidney disease with stage 1 through stage 4 chronic kidney disease, or unspecified chronic kidney disease; Z79.4 Long term (current) use of insulin; I48.91 Unspecified atrial fibrillation; Z88.8 Allergy status to other drugs, medicaments and biological substances; N17.9 Acute kidney failure, unspecified; G61.81 Chronic inflammatory demyelinating polyneuritis; E87.6 Hypokalemia; N40.0 Benign prostatic hyperplasia without lower urinary tract symptoms; N18.4 Chronic kidney disease, stage 4 (severe); E78.5 Hyperlipidemia, unspecified
CPT/HCPCS: 36415 ×2; 71045; 76770; 80053 ×2; 81001; 82550 ×2; 82553 ×2; 82948 ×2; 83036; 84443; 84484 ×2; 85025 ×2; 87086; 93005; 99284; G0378 ×2; J7030; J7040; J7121 ×2